=== PATIENT | male | born 1945 | race Caucasian/White ===

== ENCOUNTER 2017-12-22 09:29 | Inpatient (IN) ==
[2017-12-22] MEDS ORDERED: Aspirin 81 MG TAB.CHEW PO ONE (09:41)
--- NOTE | 2017-12-22 09:44 | Emergency Department Note ---
Disposition Clinical Impression: Chest pain Qualifiers: Chest pain type: unspecified Qualified Code(s): R07.9 - Chest pain, unspecified Disposition: Admitted As Inpatient Chest Pain HPI - General Chief Complaint: ED Chest Pain Stated Complaint: chest pain/tightness Time Seen by Provider: 12/22/17 09:40 Source: patient Mode of arrival: ambulatory Limitations: no limitations Vital Signs Reviewed: Yes Nursing Notes Reviewed: Yes - History of Present Illness HPI Narrative: 72-year-old male with a history of previous triple bypass surgery about 10-12 years ago comes in complaining of chest pain that started about an hour prior to arrival. He has had no recent cardiac evaluation. Pt complaint: chest pain Onset (ago): Just [employer] Duration: constant Onset: during rest Pain Location: substernal, left chest Severity: moderate Severity scale (1-10): 6 Quality: tightness, aching Pain Radiation: none Improves with: nothing Worsens with: movement Treatments prior to arrival chest pain: none - Related Data Home Medications Medication Instructions Recorded Confirmed Aspirin [Lo-Dose Aspirin EC] 81 mg PO DAILY 12/22/17 12/22/17 Atorvastatin [Lipitor] 40 mg PO HS 12/22/17 12/22/17 Cefdinir [Omnicef] 300 mg PO BID 12/22/17 12/22/17 Losartan Potassium [Cozaar] 50 mg PO DAILY 12/22/17 12/22/17 Metoprolol [Lopressor] 25 mg PO BID 12/22/17 12/22/17 Omeprazole [PriLOSEC] 20 mg PO DAILY 12/22/17 12/22/17 Allergies Allergy/AdvReac Type Severity Reaction Status Date / Time No Known Allergies Allergy Verified 12/22/17 09:31 All systems ED: reviewed and negative except as stated. Constitutional: Denies: fever, chills, weakness, weight change Eyes: Denies: eye pain, eye discharge, vision change ENT ED: Denies: ear pain, throat pain, dental pain, hearing loss, epistaxis, congestion, dysphagia Cardiovascular: Denies: chest pain, palpitations, dyspnea on exertion, edema, syncope Respiratory: Denies: cough, dyspnea, wheezes, hemoptysis, stridor Gastrointestinal: Denies: abdominal pain, nausea, vomiting, diarrhea, constipation, hematemesis, melena, hematochezia Genitourinary: Denies: urgency, dysuria, frequency, hematuria Musculoskeletal: Denies: back pain, neck pain, arthralgia, myalgia Integumentary: Denies: rash, abrasion, lesions Neurological: Denies: headache, weakness, numbness, paresthesias, confusion, abnormal gait, vertigo Psychiatric: Denies: anxiety, depression, suicidal thoughts, homicidal thoughts , auditory hallucinations, visual hallucinations Endocrine: Denies: fatigue Hematological/Lymphatic: Denies: easy bleeding, easy bruising Allergic/Immunologic: Denies: facial swelling, urticaria Chest Pain PMH - Past Medical History Medical history: Reports: coronary artery disease, hyperlipidemia, hypertension - Social History Smoking Status: Never smoker Alcohol use: Reports: none Drug use: Reports: none Physical Exam - General Limitations: no limitations General appearance: alert, in no apparent distress - Head Head exam: atraumatic, normocephalic, normal inspection - Eye Eye exam: Present: normal appearance, PERRL, EOMI - ENT ENT exam: normal exam, normal oropharynx, mucous membranes moist - Neck Neck exam: Present: normal inspection, full ROM, trachea midline - Chest Chest inspection: Present: normal inspection, symmetric chest wall rise - Respiratory Respiratory exam: Present: normal lung sounds bilaterally - Cardiovascular Cardiovascular exam: Present: regular rate, normal rhythm, normal heart sounds - Abdominal Exam Abdominal exam: Present: soft, Non-Tender. Absent: tenderness, distention, guarding, rebound, rigidity - Extremities Exam Extremities exam: Present: normal inspection, full ROM. Absent: tenderness, pedal edema - Expanded Lower Extremity Exam Neurovascular/Tendon exam: Absent: motor deficit, sensory deficit, tendon deficit Gait: observed and normal - Back Exam Back exam: Present: normal inspection, full ROM. Absent: tenderness - Neurological Exam Neurological exam: Present: alert, oriented X3 - Psychiatric Psychiatric exam: Present: normal affect, normal mood - Skin Skin exam: Present: warm, dry, intact, normal color Course - Reevaluation(s) Reevaluation #1: 72-year-old male who has a history of bypass surgery about 12 years ago comes in complaining of chest pain. He has ST segment depression on his EKG, his last EKG I have hears from an acute VT back in 2006. Sedation obtained with cardiology we'll start heparin and admit patient. Time: 10:30 - Consultations Consultation #1: Discussed with Dr. Rudolph, we will heparinize and admitted to hospitalist with consult to cardiology Time: 10:17 Consultation #2: Discussed with , admit Time: 10:30 Consultation #3: Discussed with , do labor and delivery registered nurse Time: 10:54 Vital Signs Temperature 97.7 F 12/22/17 09:31 Pulse Rate 69 12/22/17 09:31 Respiratory Rate 18 12/22/17 09:31 Blood Pressure 158/92 12/22/17 09:31 O2 Sat by Pulse Oximetry 97 12/22/17 09:31 Temperature 99.1 F 12/22/17 19:45 Pulse Rate 70 12/22/17 19:45 Respiratory Rate 19 12/22/17 19:45 Blood Pressure 124/81 12/22/17 19:45 O2 Sat by Pulse Oximetry 93 12/22/17 19:45 Oxygen Delivery Oxygen Delivery Room Air Chest Pain - Lab Data Lab results reviewed: Yes I reviewed the patient's lab results. Result diagrams: 12/22/17 09:50 12/22/17 09:50 Lab Results 12/22/17 12/22/17 12/22/17 Range/Units 09:50 09:50 09:50 WBC 12.5 H (4.3-11.1) K/mcL RBC 5.90 H (4.19-5.50) M/mcL Hgb 17.0 H (12.9-16.9) g/dL Hct 53.1 H (37.5-50.1) % MCV 90.0 (83.0-100.0) fL MCH 28.8 (28.0-33.3) pg MCHC 32.0 (31.6-35.5) g/dL RDW 13.2 (11.5-14.5) % Plt Count 357 (140-400) K/mcL MPV 9.0 L (9.4-12.4) fL Immature Gran % 1.8 (0-4) % Seg Neutrophils % 78.2 % Lymphocytes % 10.5 % Monocytes % 7.2 % Eosinophils % 1.7 % Basophils % 0.6 % Neutrophils # 9.8 H (1.6-8.9) K/mcL Lymphocytes # 1.3 (0.6-4.6) K/mcL Monocytes # 0.9 (0.0-1.3) K/mcL Eosinophils # 0.2 (0.0-0.6) K/mcL Basophils # 0.1 (0.0-0.2) K/mcL PT 11.5 (9.4-12.1) Seconds INR 1.1 APTT 26.1 (26.0-36.0) Seconds Sodium 137 (136-145) mEq/L Potassium 4.4 (3.5-5.1) mEq/L Chloride 102 (98-107) mEq/L Carbon Dioxide 28 (23-29) mEq/L BUN 24 H (8-23) mg/dL Creatinine 1.25 (0.70-1.30) mg/dL Est GFR ( Amer) > 60 (> 60) Est GFR (Non-Af Amer) 57 L (> 60) BUN/Creatinine Ratio 19 (6-26) Glucose 118 H (70-105) mg/dL Calculated Osmolality 289 (280-300) Calcium 9.4 (8.6-10.3) mg/dL Troponin I (< 0.04) ng/mL 12/22/17 Range/Units 09:50 WBC (4.3-11.1) K/mcL RBC (4.19-5.50) M/mcL Hgb (12.9-16.9) g/dL Hct (37.5-50.1) % MCV (83.0-100.0) fL MCH (28.0-33.3) pg MCHC (31.6-35.5) g/dL RDW (11.5-14.5) % Plt Count (140-400) K/mcL MPV (9.4-12.4) fL Immature Gran % (0-4) % Seg Neutrophils % % Lymphocytes % % Monocytes % % Eosinophils % % Basophils % % Neutrophils # (1.6-8.9) K/mcL Lymphocytes # (0.6-4.6) K/mcL Monocytes # (0.0-1.3) K/mcL Eosinophils # (0.0-0.6) K/mcL Basophils # (0.0-0.2) K/mcL PT (9.4-12.1) Seconds INR APTT (26.0-36.0) Seconds Sodium (136-145) mEq/L Potassium (3.5-5.1) mEq/L Chloride (98-107) mEq/L Carbon Dioxide (23-29) mEq/L BUN (8-23) mg/dL Creatinine (0.70-1.30) mg/dL Est GFR ( Amer) (> 60) Est GFR (Non-Af Amer) (> 60) BUN/Creatinine Ratio (6-26) Glucose (70-105) mg/dL Calculated Osmolality (280-300) Calcium (8.6-10.3) mg/dL Troponin I 0.03 (< 0.04) ng/mL - Radiology Data Radiology results reviewed: Yes I reviewed the patient's radiology results. Chest X-Ray 12/22/17 09:41 IMPRESSION: Stable exam. No acute cardiopulmonary findings. D/ / Kalli Seymour MD / Kalli Seymour MD Interpreting Provider: Kalli Seymour MD Chest x-ray reviewed no acute abnormality - EKG Data EKG attestation: Yes I reviewed and interpreted this EKG. EKG shows normal: sinus rhythm Rate: normal Rhythm: NSR ST segment depression in: v1, v2, v3 Interpretation: nonspecific ST-T wave changes Heart Score - Score History: Highly Suspicious EKG: Non Specific repolarisation Disturbance Age: Greater than 65 Risk Factors: Equal/Greater than 3 risk factor or history of atherosclerotic disease Troponin: Less than normal limit HEART Score Total: 7
[2017-12-22] MEDS ORDERED: *HR* Heparin 5,000 UNIT/ML VIAL IVP PRN ×2 (09:54)
[2017-12-22] MEDS ORDERED: *HR* Heparin 5,000 UNIT/ML VIAL IVP ONE (09:54)
[2017-12-22 10:00] LABS: Basophils # 0.1 K/mcL (0.0-0.2); Basophils % 0.6 %; Eosinophils # 0.2 K/mcL (0.0-0.6); Eosinophils % 1.7 %; Hematocrit 53.1 % (37.5-50.1); Immature Granulocytes % 1.8 % (0-4); Lymphocytes # 1.3 K/mcL (0.6-4.6); Lymphocytes % 10.5 %; Mean Corpuscular Hemoglobin 28.8 pg (28.0-33.3); Monocytes # 0.9 K/mcL (0.0-1.3); Monocytes % 7.2 %; Neutrophils # 9.8 K/mcL (1.6-8.9); Platelet Count 357 K/mcL (140-400); Red Cell Distribution Width 13.2 % (11.5-14.5); Segmented Neutrophils % 78.2 %
[2017-12-22] MEDS ORDERED: Heparin 25,000 UNIT/500 ML D5W 25,000 UNIT/500 ML BAG IVC SCH (10:00)
[2017-12-22 10:05] LABS: INR 1.1; Prothrombin Time 11.5 Seconds (9.4-12.1)
[2017-12-22 10:07] LABS: Activated Partial Thrombo Time 26.1 Seconds (26.0-36.0)
[2017-12-22 10:17] LABS: BUN/Creatinine Ratio 19 (6-26); Blood Urea Nitrogen 24 mg/dL (8-23); Calcium 9.4 mg/dL (8.6-10.3); Carbon Dioxide 28 mEq/L (23-29); Chloride 102 mEq/L (98-107); Glucose 118 mg/dL (70-105); Osmolality,Calculated 289 (280-300); Potassium 4.4 mEq/L (3.5-5.1); Sodium 137 mEq/L (136-145); eGFR For African Americans > 60 (> 60); eGFR For Non-African Americans 57 (> 60)
[2017-12-22] MEDS ORDERED: Nitroglycerin 1,000 MCG/10 ML VIAL IV ONE (10:59)
[2017-12-22] MEDS ORDERED: *HR* Heparin 10,000 UNIT/10 ML VIAL ONE (10:59)
[2017-12-22] MEDS ORDERED: Heparin 1,000 UNITS/500 mL 500 ML ONE (10:59)
[2017-12-22] MEDS ORDERED: 0.9 % Sodium Chloride 1,000 ML ONE ×2 (10:59→11:58)
--- NOTE | 2017-12-22 10:59 | Internal Med History&Physical ---
Date of Encounter: 12/22/17 Time of Encounter: 10:53 Assessment and Plan (1) Unstable angina Current visit: Yes Status: Acute Presentation consistent with unstable angina EKG is abnormal showing significant anterior wall ischemia (2) Hx of CABG Current visit: Yes Status: Chronic CABG done three-vessel about 11 years ago (3) HTN (hypertension) Current visit: Yes Status: Chronic Her chronic and now well-controlled patient will be started on nitroglycerin drip Qualifiers: Hypertension type: essential hypertension Qualified Code(s): I10 - Essential (primary) hypertension (4) Hyperlipidemia Current visit: Yes Status: Chronic Chronic recheck lipid profile in a.m. Qualifiers: Hyperlipidemia type: pure hypercholesterolemia Qualified Code(s): E78.00 - Pure hypercholesterolemia, unspecified; E78.0 - Pure hypercholesterolemia (5) Obesity Current visit: Yes Status: Chronic Chronic Qualifiers: Obesity type: due to excess calories Obesity classification: unspecified obesity classification Serious obesity comorbidity presence: unspecified whether serious comorbidity present Qualified Code(s): E66.09 - Other obesity due to excess calories Internal Medicine - H&P: HPI Chief complaint: chest pain Admitted From: Emergency Dept Plans for Post Hospital Care: Home History of present illness: Mr. Sebastian is a 72 year old male Patient with history of a CABG done three-vessel about 11 years ago, high cholesterol, hypertension, obesity, patient last cardiac evaluation was about 7 years ago patient presented emergency room with chest pain describes as pressure and tightnessy with shortness of breath diaphoresis radiated to the right arm emergency room EKG showed significant ST depression about 2 mm downsloping from V2 to V4 with poor r wave progression also evidence of prior inferior wall MO age undetermined patient still have persistent chest pain cardiology was notified I walked over to the label coder about talked to Dr. Rudolph and they will proceed to the emergency room probably take him to label coder . also discussed with ER about starting nitodrip Past Med Surg Social Fam HX - Past Medical History Medical history: coronary artery disease, hyperlipidemia, hypertension - Past Surgical History Surgical History: coronary bypass (CABG) - Social History Smoking Status: Never smoker Smokeless Tobacco Status: No Alcohol use: none Drug use: none Internal Medicine - H&P: Meds Aspirin [Lo-Dose Aspirin EC] 81 mg PO DAILY 12/22/17 [History] Atorvastatin [Lipitor] 40 mg PO HS 12/22/17 [History] Cefdinir [Omnicef] 300 mg PO BID 12/22/17 [History] Losartan Potassium [Cozaar] 50 mg PO DAILY 12/22/17 [History] Metoprolol [Lopressor] 25 mg PO BID 12/22/17 [History] Omeprazole [PriLOSEC] 20 mg PO DAILY 12/22/17 [History] 3 Allergy/AdvReac Type Severity Reaction Status Date / Time No Known Allergies Allergy Verified 12/22/17 09:31 All Systems PM: A 10-system review of systems was performed and is negative for pertinent findings except as documented above in the HPI. - Constitutional Constitutional: fatigue - EENT Eyes: no change in vision, no discharge, no pain, no photophobia Nose, mouth and throat: no dysphagia, no nasal discharge, no neck pain, no sore throat - Cardiovascular Cardiovascular ROS IM: chest pain, diaphoresis, dyspnea - Respiratory Respiratory: no cough, no dyspnea, no wheezing, no excessive phlegm production - Gastrointestinal Gastrointestinal: no abdominal pain, no diarrhea, no hematemesis, no hematochezia, no melena, no nausea, no vomiting - Musculoskeletal Musculoskeletal ROS IM: no numbness, no tingling - Integumentary Integumentary IM: no rash, no unusual bruising - Constitutional Vitals: Temp Pulse Resp BP Pulse Ox 97.7 F 67 20 141/97 94 12/22/17 09:31 12/22/17 10:16 12/22/17 10:16 12/22/17 10:16 12/22/17 10:16 - Head Head exam: Present: atraumatic, normocephalic - Eye Eye exam: Present: PERRL, conjuntiva pink, sclera anicteric Pupils: Present: PERRL - Neck Neck exam general surgery: Present: supple, trachea midline. Absent: lymphadenopathy - Respiratory Respiratory exam: Present: CTAB. Absent: accessory muscle use, rales, rhonchi, wheezes - Cardiovascular Cardiovascular exam: Present: RRR, +S1, +S2. Absent: diastolic murmur, gallop, rubs, systolic murmur - GI/Abdominal GI/Abdominal exam: Present: normal bowel sounds, soft, no peritoneal signs. Absent: distended, tenderness - Extremities Exam Extremities exam: Present: warm, radial pulses palpable and symmetrical. Absent : calf tenderness, cyanotic, pedal edema - Neurological Exam Neurological exam: Present: CN II-XII intact, oriented X3, no focal deficits. Absent: pronater drift, facial droop, speech deficit - Skin Skin exam: Present: dry, intact Internal Med - H&P Results - Labs CBC & Chem 7: 12/22/17 09:50 12/22/17 09:50 Labs: Short CBC 12/22/17 Range/Units 09:50 WBC 12.5 H (4.3-11.1) K/mcL Hgb 17.0 H (12.9-16.9) g/dL Hct 53.1 H (37.5-50.1) % Plt Count 357 (140-400) K/mcL Neutrophils # 9.8 H (1.6-8.9) K/mcL BMP 12/22/17 09:50 Sodium 137 Potassium 4.4 Chloride 102 Carbon Dioxide 28 BUN 24 H Creatinine 1.25 Glucose 118 H Calcium 9.4 Cardiac Enzymes 12/22/17 Range/Units 09:50 Troponin I 0.03 (< 0.04) ng/mL - Impressions ITS Impressions Chest X-Ray 12/22/17 09:41 IMPRESSION: Stable exam. No acute cardiopulmonary findings. D/ / Kalli Seymour MD / Kalli Seymour MD Interpreting Provider: Kalli Seymour MD
[2017-12-22] MEDS ORDERED: Nitroglycerin 25 MG/250 ML INFUS..BTL IVC SCH (11:00)
[2017-12-22] MEDS ORDERED: Naloxone 0.4 MG/ML INJ IVP PRN (11:03)
[2017-12-22] MEDS ORDERED: Ondansetron 4 MG/2 ML VIAL IVP PRN (11:03)
[2017-12-22] MEDS ORDERED: Mag Hydrox/Al Hydrox/Simeth 30 ML UDC PO PRN (11:03)
--- NOTE | 2017-12-22 11:16 | Cardiology Consult Note ---
Date of Encounter: 12/22/17 Time of Encounter: 11:15 Assessment and Plan (1) Unstable angina Current Visit: Yes Status: Acute C/o severe chest pain starting this morning while at work. EKG concerning for ischemic changes. First troponin negative. [facility] recommended for unstable angina. R/B/A of [facility] reviewed with patient and and he agrees to proceed. Contine heparin gtt. NTG gtt is being started, Continue asa, statin, and bb. (2) Hx of CABG Current Visit: Yes Status: Chronic H/o 2V CABG in 2006 ( PITT-LAD, SVG -OM of the RCA). LHC before bypass showed severe two vessel CAD. There was a 100% stenosis in the pLAD, 85% stenosis in the pRCA, and 15% stenosis in the LCx artery. EF 40% at that time. Continue asa, statin, bb. (3) HTN (hypertension) Current Visit: Yes Status: Chronic Will adjust medications as needed. NTG gtt is being started. Moderatley elevated. Qualifiers: Hypertension type: essential hypertension Qualified Code(s): I10 - Essential (primary) hypertension (4) Hyperlipidemia Current Visit: Yes Status: Chronic Qualifiers: Hyperlipidemia type: pure hypercholesterolemia Qualified Code(s): E78.00 - Pure hypercholesterolemia, unspecified; E78.0 - Pure hypercholesterolemia Discussion w patient/family: The assessment and plan as outlined above was discussed with the patient and/or family members who expressed understanding and agreement. All questions were answered. Thank you for involving us in the care of your patient. Please call with any questions. History of Present Illness Consult date: 12/22/17 Requesting physician: Vitor Richardson Consult reason: Chest pain Chief complaint: Chest pain History of present illness: Mr. Sebastian is a 72 year old male with a past medical history of CAD s/p 2V CABG 11 years ago, HTN, and HLD who presents with the c/o chest pain radiating across his chest. His pain started this morning while he was sitting at work. He drove him self to the ER and sat in the parking lot for 20 min. He started to feel better so he went home. His pain returned shortly after returning home so he drove back. He was given 4 baby aspirins and started on a heparin gtt. He continued to have significant chest pressure. EKG shows SR and new ST depression in leads V2-V4. Initial troponin is negative. Past Med Surg Social Fam HX - Past Medical History Medical history: coronary artery disease, hyperlipidemia, hypertension - Past Surgical History Surgical History: coronary bypass (CABG) - Social History Smoking Status: Never smoker Smokeless Tobacco Status: No Alcohol use: none Drug use: none Medications and Allergies Aspirin [Lo-Dose Aspirin EC] 81 mg PO DAILY 12/22/17 [History] Atorvastatin [Lipitor] 40 mg PO HS 12/22/17 [History] Cefdinir [Omnicef] 300 mg PO BID 12/22/17 [History] Losartan Potassium [Cozaar] 50 mg PO DAILY 12/22/17 [History] Metoprolol [Lopressor] 25 mg PO BID 12/22/17 [History] Omeprazole [PriLOSEC] 20 mg PO DAILY 12/22/17 [History] 3 Allergy/AdvReac Type Severity Reaction Status Date / Time No Known Allergies Allergy Verified 12/22/17 09:31 All Systems Review: A 10-system review of systems was performed and is negative for pertinent findings except as documented above in the HPI. Physical Examination Vital Signs Temp Pulse Resp BP Pulse Ox 12/22/17 10:16 67 20 141/97 94 12/22/17 09:52 68 16 144/101 97 12/22/17 09:31 97.7 F 69 18 158/92 97 Intake and Output 12/21/17 12/22/17 12/22/17 23:59 07:59 15:59 Other: Weight 99.79 kg Patient Weight 12/22/17 23:59 Weight 99.79 kg General: Conversant, No Apparent Distress HEENT: Atraumatic, Normocephaly, Mucus Membranes Moist Neck: No JVD, Normal carotid pulses Cardiac: Reg Rate and Rhythm, Normal S1 and S2, No Murmur Lungs: Normal Breath Sounds, No Wheeze, Rales, Rhonchi Neuro: Alert and responsive, No focal deficits noted Abdomen: Soft, Non-Tender Skin: No rashes noted on visualized skin Musculoskeletal: No Chest Wall Tenderness Extremities: No Clubbing, No Cyanosis, No Edema, Normal Pulses Results 12/22/17 09:50 12/22/17 09:50 - EKG Interpretation EKG results cardiology: personally reviewed Consult Discharge Plan - Plan Referrals: Nirav Solomon DO [Primary Care Provider] -
[2017-12-22] MEDS ORDERED: *HR* Midazolam HCl 2 MG/2 ML VIAL ONE ×2 (11:53→12:40)
[2017-12-22] MEDS ORDERED: *HR* FentaNYL (PF) 100 MCG/2 ML VIAL ONE (11:54)
[2017-12-22] MEDS ORDERED: ISOVUE-370 200 ML INFUS..BTL IV ONE ×2 (11:58→12:59)
--- NOTE | 2017-12-22 12:06 | Pre-Sedation Evaluation ---
Pre-sedation evaluation - Pre-sedation checklist Date of procedure: 12/22/17 Procedure: [facility] Recent Vitals: Last Vital Signs Temp 97.7 F 12/22/17 09:31 Pulse 65 12/22/17 11:41 Resp 16 12/22/17 11:41 BP 140/95 12/22/17 11:41 Pulse Ox 100 12/22/17 11:41 H&P (including ROS) documented in medical record: Yes Previous reaction to sedatives/anesthetics: No Dietary Status: NPO after Midnight Airway Assessment: Patient can open mouth completely, TMJ function normal, Micrognathia (under-bite, receding chin) absent, Neck with adequate range of motion Dentition: No loose teeth or bridges Possible difficult airway: No ASA Classification *see protocol: CLASS II-Mild systemic disease Plan of Care: Pt appropriate candidate for procedure/moderate/conscious sedation , Risks/benefits of procedure/sedation discussed w/ patient/family
[2017-12-22] MEDS ORDERED: *HR* Bivalirudin 250 MG VIAL IVC ONE (12:43)
[2017-12-22] MEDS ORDERED: *HR* Ticagrelor 90 MG TABLET ONE (13:08)
[2017-12-22] MEDS ORDERED: Nitroglycerin 0.4 MG TAB.SUBL SL PRN (13:16)
[2017-12-22] MEDS ORDERED: Acetaminophen 325 MG TABLET PO PRN (13:16)
--- NOTE | 2017-12-22 14:31 | Invasive Diagnostic Lab Proc ---
Name: Teresa Sebastian Date of Study: 12/22/2017 Date: 1945 Ht: 66.1in Medical Record#: [id number] Age: 72 Wt: 220.46lb Gender: Male BSA: 2.09 Order #: [id number] BMI: 35.43 Physicians Procedure Physician: Yumiko Blevins MD, [facility] Referring MD: Referring MD: Staff Name Position Time In VaishalirudyAnabella casas RN Monitor 12:13 PM Shania Martínez RT (R) Scrub 12:13 PM Chirag Wood RN C4 Planner 12:13 PM Indications Indication Unstable Angina Procedures Performed Procedure L HRT ART/GRFT ANGIO PRQ CARD MALCOM STENT W/ANGIO 1 VSL Pre-Procedure Checklist Informed consent is complete signed and on chart. H&P is on chart. ID band is on and ID verified with patient. Patient NPO for procedure The procedure was described for the patient and questions were answered. Blood Pressure: 125/90 ECG is on chart. Rhythm: NSR Plan of Care Patient will tolerate the procedure without complications. Adequate level of comfort will be maintained. Hemodynamics will remain stable Patient will recover from procedure without complications. Respiratory function will be maintained. Cardiac rhythm will remain stable. Patient temperature will be maintained. Patient and/or family have verbalized understanding of the procedure. Patient Education Chief Complaint/Reason for Test: Cardiac Cath Developmental Category: Geriatric (65+ years) Developmentally Appropriate for Age: Yes Learning Barriers: None Education Needs: Procedure Education Method: Verbal Information Taught: Cardiac Cath Educational Evaluation: Able to repeat information Intravenous Access Time IV Size Location DC'd Fluid/Drip Rate Units RN 18g 1 11/16" Patent On Arrival Lt Antecubital 0.9NaCl ml/hr Allergies No Known Allergies NKA Vital Signs Time BP (mmHg) HR (bpm) O2 Sat. RR (bpm) LOC 12:19 PM / % 5 = Fully awake and oriented or at pre-proc level 12:19 PM / % 4 = Oriented but drowsy 12:34 PM / % 4 = Oriented but drowsy 12:50 PM / % 4 = Oriented but drowsy 12:58 PM 120 / 73 61 94 % 01:03 PM 110 / 57 63 96 % 16 01:08 PM 112 / 69 60 94 % 12:13 PM 125 / 90 86 93 % 29 12:18 PM 127 / 86 71 95 % 12:23 PM 131 / 82 64 94 % 29 12:28 PM 131 / 85 63 94 % 12:33 PM 129 / 78 67 95 % 26 12:38 PM 120 / 78 71 94 % 24 12:43 PM 126 / 83 63 92 % 12:48 PM 139 / 81 66 93 % 23 12:53 PM 119 / 64 69 93 % 18 01:31 PM 107 / 66 62 96 % 18 5 = Fully awake and oriented or at pre-proc level 01:55 PM 95 / 64 58 96 % 18 5 = Fully awake and oriented or at pre-proc level 02:05 PM 113 / 67 61 96 % 18 5 = Fully awake and oriented or at pre-proc level 02:22 PM 105 / 65 65 95 % 18 5 = Fully awake and oriented or at pre-proc level Procedural Medications Time Medication Dose Units Method Given By 12:14 PM Oxygen 2 L/min nasal cannula Chirag Wood RN 12:14 PM Versed 2 mg Intravenous Chirag Wood RN 12:14 PM Fentanyl 50 mcg Intravenous Chirag Wood RN 12:25 PM Lidocaine 2% 19 ml Subcutaneous Yumiko Blevins MD, FACC 12:40 PM Angiomax 0.75mg/kg bolus: 15 ml Intravenous Chirag Wood RN 12:40 PM Angiomax 1.75mg/kg/hr: 35 ml/hr Intravenous Chirag Wood RN 12:41 PM Versed 1 mg Intravenous Chirag Wood RN 12:41 PM Fentanyl 25 mcg Intravenous Chirag Wood RN 12:51 PM Nitroglycerin 200 mcg Intracoronary Yumiko Blevins MD, FACC 12:51 PM Nitroglycerin 200 mcg Intracoronary Yumiko Blevins MD, FACC 01:02 PM Nitroglycerin 200 mcg Intracoronary Yumiko Blevins MD, FACC 01:03 PM Nitroglycerin 200 mcg Intracoronary Yumiko Blevins MD, FACC 01:21 PM Brilinta 180 mg Orally Estrellita Cunningham RN ASA Classification: CLASS II- Mild systemic disease (i.e. well-controlled diabetes, hypertension, asthma, cigarette smoking) Kofi Score Preprocedure Postprocedure Activity 2- Moves 4 extremities sustained head lift Activity 2- Moves 4 extremities sustained head lift Circulation 2- SBP +/= 20 points of pre-anesthetic level Circulation 2- SBP +/= 20 points of pre-anesthetic level Consciousness 2- Awake and alert oriented x 3 Consciousness 2- Awake and alert oriented x 3 O2 Saturation 2- Able to maintain O2 satruation of 92% on room air O2 Saturation 2- Able to maintain O2 satruation of 92% on room air Respiratory 2- Able to deep breathe and cough well Respiratory 2- Able to deep breathe and cough well Total Score 10 Total Score 10 Contrast Agent: Isovue Diagnostic Contrast: 217 ml Total Contrast: 217 ml Fluoro Dose: 988 mGy Procedure Log Time Note Enter By 11:52 AM CathStat 12:02 PM Pt arrived to [employer] 2 at 12:02 [email or web address] 12:03 PM Physican paged/called 12:03. [email or web address] 12:03 PM Physican responded and notified [facility] is [email or web address] PM Meet and greet completed [email or web address] 12:03 PM Sign in performed according to hospital policy. [email or web address] 12:03 PM Procedure start 12:03 [email or web address] 12:[facility] PM Clinical Presentation: Unstable angina [email or web address] 12:03 PM Case Start 12:07 PM Vitals capture started with the following parameters, Patient=Adult, Interval=5 min, Initial Hosvjgpn=982 mmHg, Deflation Rate=5 mmHg, Cuff placed on Right Arm 12:12 PM Vitals capture started with the following parameters, Patient=Adult, Interval=5 min, Initial Ppaptfim=566 mmHg, Deflation Rate=5 mmHg, Cuff placed on Right Arm 12:13 PM Anabella Jiang RN Position: Monitor Time in: 12:13 [facility] 12:13 PM Shania Martínez RT (R) Position: Scrub Time in: 12:13 12:13 PM Chirag Wood RN Position: C4 Planner Time in: 12:13 [facility] 12:13 PM Patient charges- Angio tray pack, Navilyst 3mm J, Pulse Oximetry and ACIST tubing and transducer [facility] 12:13 PM Case Delayed No mmers 12:13 PM HR=86 bpm, XWMV=896/90 mmhg, SpO2=93.0 %, Resp=29 B/min 12:13 PM Hair removed from procedure site in procedure lab using clippers. Bilateral groin prepped with Chloraprep by Shania Martínez RT (R), then patient was draped. Skin intact. [facility] 12:14 PM Time: 12:14 Oxygen on at 2 L/min per nasal cannula [facility] PM Time: 12:14 Versed 2 mg Intravenous Given by Chirag Wood RN 12:14 PM Time: 12:14 Fentanyl 50 mcg Intravenous Given by Chirag Wood RN [facility] 12:18 PM HR=71 bpm, TVPR=380/86 mmhg, SpO2=95.0 % 12:19 PM ASA Class CLASS II- Mild systemic disease (i.e. well-controlled diabetes, hypertension, asthma, cigarette smoking) [facility] 12:19 PM Time: 12:19 Patient comfortable and pain free: Yes [facility] 12:19 PM Time: 12:19LOC: 5 = Fully awake and oriented or at pre-proc level [facility] 12:23 PM HR=64 bpm, UVUG=202/82 mmhg, SpO2=94.0 %, Resp=29 B/min 12:23 PM Pressure channel 1 zeroed. 12:23 PM Recorded ECG: HR=62 Condition=Condition 1 12:24 PM Time out performed according to hospital policy [facility] 12:25 PM Time: 12:25 19 ml Lidocaine 2% to right groin Subcutaneous Given by Yumiko Blevins MD, [facility] 12:27 PM Access obtained by percutaneous puncture. 5Fr 10cm Terumo [place] sheath placed in right Femoral artery. [id number] [facility] 12:27 PM 5Fr FL 4 catheter inserted over the wire [facility] 12:28 PM LCA angiography performed in multiple views. [facility] 12:28 PM Recorded Pressure: Ao, HR=64, Condition=Condition 1 (Aorta) Ao 123/91/107 12:28 PM HR=63 bpm, GQPI=123/85 mmhg, SpO2=94.0 %, Comment=NSR 12:30 PM Catheter removed [facility] 12:30 PM 5Fr FR 4 catheter inserted over the wire [facility] 12:31 PM RCA angiography performed in multiple views. [facility] 12:31 PM Bed Management notified of need for a bed [facility] 12:32 PM SVG to the RPDA angio performed in MANUEL, stumped. dspell 12:32 PM Catheter removed dspell 12:33 PM 5Fr IM catheter inserted over the wire [id number] dspellman 12:33 PM 0.035 260cm Navilyst 3mmJ wire [id number] dspellman 12:33 PM HR=67 bpm, IPII=004/78 mmhg, SpO2=95 %, Resp=26 B/min 12:34 PM Time: 12:19 Patient comfortable and pain free: Yes dspell 12:34 PM Time: 12:19LOC: 4 = Oriented but drowsy dspellman 12:35 PM PCI Status Urgent dspell 12:35 PM PCI Indication: PCI for high risk Non-STEMI or unstable angina dspell 12:36 PM 6Fr XB LAD 3.5 Cordis guide catheter was used to cannulate the PCI vessel successfully. reused? No dspell 12:38 PM PCI lesion in 1st Marginal. dspell 12:38 PM PCI lesion in 1st Marginal. Pre Stenosis: 99 Pre KEVEN Flow: 1: Slow Penetration without Perfusion dspell 12:38 PM HR=71 bpm, IEOF=909/78 mmhg, SpO2=94.0 %, Resp=24 B/min, Comment=NSR 12:39 PM Sheath exchanged for a 6 Fr 11 cm Cordis [place] sheath [id number] dspell 12:39 PM .014 Prowater 182cm guide wire across target lesion- successful. reused? No dspell 12:39 PM Inflation device was opened. [facility] 12:40 PM Time: 12:40 Angiomax 0.75mg/kg bolus: 15 ml Intravenous Given by Chirag Wood RN [place] [facility] 12:41 PM Time: 12:40 Angiomax 1.75mg/kg/hr: 35 ml/hr Intravenous Given by Chirag Wood RN [place] [facility] 12:41 PM Time: 12:41 Versed 1 mg Intravenous Given by [facility] RN [facility] 12:41 PM Time: 12:41 Fentanyl 25 mcg Intravenous Given by Chirag Wood [facility] 12:41 PM wire out to [facility] 12:42 PM Recorded Pressure: Ao, HR=64, Condition=Condition 1 (Aorta) Ao 133/83/102 12:43 PM Wire inserted to the OM dspellman 12:43 PM HR=63 bpm, QLGV=085/83 mmhg, SpO2=92.0 %, Comment=NSR 12:45 PM 1.5 mm x 15 mm Emerge Monorail balloon across target lesion- successful. reused? No dspell 12:46 PM Balloon inflated @ 14 marek for 39 seconds dspellman 12:47 PM Balloon inflated @ 14 marek for 20 seconds dspellman 12:47 PM Balloon inflated @ 8 marek for 20 seconds dspellman 12:47 PM Balloon inflated @ 10 marek for 20 seconds dspellman 12:48 PM HR=66 bpm, DQGM=029/81 mmhg, SpO2=93.0 %, Resp=23 B/min, Comment=NSR 12:48 PM Balloon inflated @ 14 marek for 20 seconds dspellman 12:49 PM Balloon inflated @ 14 marek for 20 seconds dspellman 12:50 PM Balloon inflated @ 20 [place]k for 20 seconds [place] 12:50 PM Time: 12:34 Patient comfortable and pain free: Yes [facility] 12:50 PM Time: 12:34LOC: 4 = Oriented but drowsy [place] 12:50 PM Balloon catheter removed intact. dspell 12:51 PM Time: 12:51 Nitroglycerin 200 mcg Intracoronary Given by Yumiko Blevins MD, [facility] 12:51 PM Time: 12:51 Nitroglycerin 200 mcg Intracoronary Given by Yumiko Blevins MD, [facility] 12:53 PM HR=69 bpm, RTNH=744/64 mmhg, SpO2=93.0 %, Resp=18 B/min, Comment=NSR 12:54 PM Recorded Pressure: Ao, HR=63, Condition=Condition 1 (Aorta) Ao 115/75/91 12:57 PM 2.25mm x 12mm Synergy drug-eluting stent across target lesion- successful Lot #[id number] dspell 12:57 PM Stent deployed @ 11 marek for 30 seconds dspell 12:58 PM HR=61 bpm, JFHW=968/73 mmhg, SpO2=94.0 %, Comment=NSR 01:01 PM Stent delivery system removed intact. [email or web address] 01:02 PM Time: 13:02 Nitroglycerin 200 mcg Intracoronary Given by Yumiko Blevins MD, [facility] 01:03 PM Guide wire removed intact. dspellman 01:03 PM HR=63 bpm, ZPDJ=751/57 mmhg, SpO2=96.0 %, Resp=16 B/min, Comment=NSR 01:03 PM Time: 13:03 Nitroglycerin 200 mcg Intracoronary Given by Yumiko Blevins MD, [facility] ell:05 PM Guide catheter removed intact. ell:05 PM Pressure channel 1 zeroed. 01:05 PM Recorded Pressure: LV, HR=75, Condition=Condition 1 (Left Ventricle) LV 78/12/9 01:06 PM Pressure channel 1 zeroed. 01:06 PM Recorded Pressure: LV, HR=61, Condition=Condition 1 (Left Ventricle) LV 78/1/3 01:06 PM Recorded Pressure: LV, Ao, HR=60, Condition=Condition 1 (Left Ventricle) LV 79/4/15, (Aorta) Ao 84/56/71 01:06 PM Time: 12:50LOC: 4 = Oriented but drowsy dspell:07 PM 5Fr Pigtail catheter inserted over the wire [facility] :07 PM Catheter selectively placed in left ventricle dspell:07 PM Bolus angiogram of left Ventricle complete: 6 ml/sec for a total of 24 mls dspell:07 PM Bolus angiogram of right Femoral complete: 4 ml/sec for a total of 7 mls dspell:07 PM Catheter removed :08 PM HR=60 bpm, IPWM=569/69 mmhg, SpO2=94.0 % 01:08 PM Procedure completed at 13:08 dspell:08 PM Did you address KEVEN flow and Dominance? Yes ell:09 PM Sign out completed: Radiation Dose 988.5 mGy Fluoro Time: 11.0 Isovue 370 - 200ml contrast 217 ml given by Yumiko Blevins MD, [facility]. Complications: NoneCardiac Rehab Consult needed: NoConfirmed administered medications: Yes :11 PM Coronary Dominance: Left dspell:12 PM Lesion found in Proximal RCA. Pre Stenosis: 95 Pre KEVEN Flow: dspell:12 PM Lesion found in LMCA. Pre Stenosis: 20 Pre KEVEN Flow: dspell:12 PM Lesion found in Proximal LAD. Pre Stenosis: 70 Pre KEVEN Flow: dspellman 01:12 PM Lesion found in Mid LAD. Pre Stenosis: 100 Pre KEVEN Flow: dspellman 01:12 PM Lesion found in Proximal Circumflex. Pre Stenosis: 20 Pre KEVEN Flow: dspellman 01:13 PM Lesion found in Mid Circumflex. Pre Stenosis: 25 Pre KEVEN Flow: dspellman 01:13 PM Lesion found in Distal Circumflex. Pre Stenosis: 25 Pre KEVEN Flow: dspellman 01:13 PM Lesion found in Ramus. Pre Stenosis: 25 Pre KEVEN Flow: dspellman 01:13 PM Vitals capture stopped. 01:16 PM Ramus with 25% stenosis. If graft is supplying this area, 0 % stenosis dspellman 01:16 PM Circumflex, Obtuse Marginal, Left Posterior Descending, and Left Posterolateral Coronary Arteries with 99 % stenosis. If graft is supplying this area, 0 % stenosis dspellman 01:17 PM Mid/Distal Left Anterior Descending Coronary Artery and diagonal branches with 100% stenosis. If graft is supplying this area, 0 % stenosis dspellman 01:17 PM Proximal Left Anterior Descending Coronary Artery with 70% stenosis. If graft is supplying this territory, 0 % stenosis. dspellman 01:18 PM Left Main Coronary Artery with 20% stenosis dspellman 01:18 PM Right Coronary, Right Posterior Descending Arteries with Right Posterolateral and Acute Marginal branches with 95 % stenosis. If graft is supplying this area, 100 % stenosis dsp:21 PM Time: 13:21 Brilinta 180 mg Orally Given by Estrellita Cunningham RN : PM Sheath left in place to be pulled on floor/holding area : PM Estimated Blood Loss: less than 20cc dspell: PM Post ECG NSR dspell: PM Post Blood Pressure 112/69 dspell: PM Information taught Cardiac Cath and PCI dsp PM Education needs Procedure, Plan of Care, and Responsibilities of Patient in Care PM Learning barriers :None PM Education Methods Verbal dsp PM Education evaluation Able to repeat information PM Site status No bleeding/hematoma - Rt Groin as reported by Shania Martínez RT (R) at 13:23 PM Opsite applied dspellman 01:23 PM Report given to Ashleigh MCGHEE Pt taken to Holding room Room #3. 13:23 dspell 01:23 PM Plavix, Effient or Brilinta given Yes ell 01:24 PM Delay to floor Bed availability dspell 01:24 PM Patient out of room: 13:24 dspell 01:24 PM Family placed in consult room. dspell 01:24 PM Complications: None dspell 01:24 PM Fluoro Time: 11 dsp 01:31 PM pt checked into HR 4, waiting on room to be cleaned [email or web address] 01:48 PM report called to Leeanna on 2N [email or web address] 01:57 PM Report given to Emiliana MCGHEE Pt taken to 2N Room #9. 13:56 [email or web address] 02:04 PM TAZ Lal at bedside talking with patient about cardiac rehab [email or web address] 02:23 PM Patient out of room: 14:23 [email or web address] Complications Complication None Hemodynamics Pressures Site Systolic/A Wave Diastolic/V Wave Mean AO 123 91 107 AO 133 83 102 AO 115 75 91 LV 78 12 9 LV 78 1 3 LV 79 4 15 AO 84 56 71 Post Procedure Information Blood Pressure: 112/69 mmHg Rhythm: NSR Post procedural instructions were given Site Checks Time Location Status Staff Sheath In? Note 01:23 PM Rt Groin No bleeding/hematoma Shania Martínez RT (R) Yes 01:31 PM Rt Groin No bleeding/ No Hematoma Karina Pacheco RN Yes 01:55 PM Rt Groin No bleeding/ No Hematoma Karina Pacheco RN Yes 02:04 PM Rt Groin No bleeding/ No Hematoma Karina Pacheco RN Yes 02:22 PM Rt Groin No bleeding/ No Hematoma Karina Pacheco RN Yes Pulses Time Site Pre-Procedure Post-Procedure Note Bilateral DP & PT 1+ Bilateral radial 2+ 12/22/2017 2:05:00 PM Bilateral DP & PT 1+ 12/22/2017 2:22:00 PM Bilateral DP & PT 1+ Updated by Karina Pacheco RN on 12/22/2017 2:23:35 PM electronically signed on 12/22/2017 2:24:12 PM with status of Final
--- NOTE | 2017-12-22 17:34 | Electrocardiograph Report ---
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
[2017-12-22] MEDS: *HR* Ticagrelor 90 MG TABLET PO SCH (20:36)
[2017-12-23] MEDS: *HR* Ticagrelor 90 MG TABLET PO SCH (07:41)
[2017-12-23 08:49] LABS: Alanine Aminotransferase 24 Units/L (7-52); Albumin 3.6 g/dL (3.5-5.7); Albumin/Globulin Ratio 1.3 (1.1-2.2); Alkaline Phosphatase 75 Units/L (34-104); Aspartate Amino Transferase 47 Units/L (13-39); BUN/Creatinine Ratio 18 (6-26); Bilirubin,Total 0.7 mg/dL (0.3-1.0); Blood Urea Nitrogen 19 mg/dL (8-23); Calcium 8.5 mg/dL (8.6-10.3); Carbon Dioxide 24 mEq/L (23-29); Chloride 104 mEq/L (98-107); Chol/HDL Ratio 3.8 (0-4.9); Cholesterol 123 mg/dL (< 200); Globulin 2.8 g/dL (2.4-3.5); Glucose 111 mg/dL (70-105); HDL Cholesterol 32 mg/dL (40-59); LDL Cholesterol,Calculated 76 mg/dL (0-99); Osmolality,Calculated 281 (280-300); Potassium 4.2 mEq/L (3.5-5.1); Sodium 134 mEq/L (136-145); Total Protein 6.4 g/dL (6.4-8.9); Triglycerides 76 mg/dL (< 150); eGFR For African Americans > 60 (> 60); eGFR For Non-African Americans > 60 (> 60)
[2017-12-23] MEDS ORDERED: Aspirin Enteric Coated 81 MG Tablet PO SCH (09:00)
[2017-12-23 10:41] LABS: Basophils % 0.5 %; Eosinophils # 0.1 K/mcL (0.0-0.6); Eosinophils % 1.4 %; Hematocrit 46.5 % (37.5-50.1); Lymphocytes # 0.9 K/mcL (0.6-4.6); Lymphocytes % 12.7 %; Mean Corpuscular Hemoglobin 28.6 pg (28.0-33.3); Mean Corpuscular Volume 89.3 fL (83.0-100.0); Mean Platelet Volume 9.4 fL (9.4-12.4); Monocytes # 0.9 K/mcL (0.0-1.3); Monocytes % 11.5 %; Neutrophils # 5.3 K/mcL (1.6-8.9); Platelet Count 286 K/mcL (140-400); Red Blood Count 5.21 M/mcL (4.19-5.50); Red Cell Distribution Width 13.6 % (11.5-14.5); Segmented Neutrophils % 71.9 %
[2017-12-23 10:48] LABS: Hemoglobin 14.9 g/dL (12.9-16.9)
--- NOTE | 2017-12-23 10:53 | Cardiology Progress Note ---
Date of Encounter: 12/23/17 Time of Encounter: 10:00 Assessment and Plan (1) NSTEMI (non-ST elevated myocardial infarction) Current Visit: Yes Status: Acute Troponin elevation 0.34, 4.08, 7.17, 7.65. LHC showed 1/2 patent bypass grafts. SVG-right marginal occluded. Pitt -LAD is patent. He received PCI to the OM1. Noted troponin continues to increase after cath. His LHC was completed quickly after his arrival due to concerning EKG changes. Further troponin elevation was expected. He denies chest pain and EKG with no acute changes. TTE shows preserved EF. Discussed with primary team, they will check one more troponin prior to d/c. Discussed with carri Rosales to discharge from cardiology standpoint if he is not having symptoms. There was no complication from the procedure. Denies recurrent chest pain. No complications from right femoral access site. Importance of DAPT with asa and brilinta uninterrupted for minimum of one year discussed and she voiced understanding. Continue statin and BB. Activity restrictions reviewed as stated above.Cardiac rehab ordered. Cardiology will sign off. Out-pt f/u will be coordinated by [facility]. (2) Hx of CABG Current Visit: Yes Status: Chronic H/o 2V CABG in 2006 ( PITT-LAD, SVG -OM of the RCA). Continue asa, statin, bb. (3) HTN (hypertension) Current Visit: Yes Status: Chronic B/p acceptable. Qualifiers: Hypertension type: essential hypertension Qualified Code(s): I10 - Essential (primary) hypertension (4) Hyperlipidemia Current Visit: Yes Status: Chronic Qualifiers: Hyperlipidemia type: pure hypercholesterolemia Qualified Code(s): E78.00 - Pure hypercholesterolemia, unspecified; E78.0 - Pure hypercholesterolemia Discussion w patient/family: The assessment and plan as outlined above was discussed with the patient and/or family members who expressed understanding and agreement. All questions were answered. Thank you for involving us in the care of your patient. Please call with any questions. Subjective Principal diagnosis: NSTEMI Interval history: Mr. Chaparro denies recurrent chest pain. Objective General: Conversant, No Apparent Distress HEENT: Atraumatic, Normocephaly, Mucus Membranes Moist Neck: No JVD, Normal carotid pulses Cardiac: Reg Rate and Rhythm, Normal S1 and S2, No Murmur Lungs: Normal Breath Sounds, No Wheeze, Rales, Rhonchi Neuro: Alert and responsive, No focal deficits noted Abdomen: Soft, Non-Tender Skin: No rashes noted on visualized skin Musculoskeletal: No Chest Wall Tenderness Extremities: No Clubbing, No Cyanosis, No Edema, Normal Pulses, Other (Right groin without hematoma, ) Results 12/22/17 09:50 12/23/17 07:04 Lab Results 12/22/17 12/22/17 12/23/17 13:52 19:19 01:00 Sodium Potassium Chloride Carbon Dioxide BUN Creatinine Glucose Calcium Magnesium Total Bilirubin AST ALT Alkaline Phosphatase Troponin I 0.34 H* 4.08 H* 7.47 H* B-Natriuretic Peptide 12/23/17 12/23/17 12/23/17 07:04 07:04 07:04 Sodium 134 L Potassium 4.2 Chloride 104 Carbon Dioxide 24 BUN 19 Creatinine 1.06 Glucose 111 H Calcium 8.5 L Magnesium 2.0 Total Bilirubin 0.7 AST 47 H ALT 24 Alkaline Phosphatase 75 Troponin I 7.65 H* B-Natriuretic Peptide 29 - Imaging and Cardiology Cardiac cath: report reviewed - EKG Interpretation EKG results cardiology: personally reviewed Consult Discharge Plan - Plan Referrals: Nirav Solomon DO [Primary Care Provider] -
[2017-12-23 10:54] VITALS: BP 135/81
--- NOTE | 2017-12-23 14:28 | Discharge Summary ---
<MauricetristanalexsandraLuiz Rasheed - Last Filed: 12/23/17 14:24> Date of Encounter: 12/23/17 Time of Encounter: 14:24 - Discharge Diagnosis (1) Unstable angina Priority: Primary Status: Acute (2) Hx of CABG Priority: Primary Status: Chronic (3) HTN (hypertension) Priority: Primary Status: Chronic Qualifiers: Hypertension type: essential hypertension Qualified Code(s): I10 - Essential (primary) hypertension (4) Hyperlipidemia Priority: Primary Status: Chronic Qualifiers: Hyperlipidemia type: pure hypercholesterolemia Qualified Code(s): E78.00 - Pure hypercholesterolemia, unspecified (5) NSTEMI (non-ST elevated myocardial infarction) Priority: Primary Status: Acute - Discharge Medications Prescriptions: Atorvastatin [Lipitor] 80 mg PO HS 30 Days #60 tablet Ticagrelor [Brilinta] 90 mg PO BID 30 Days #30 tablet Home Medications: Aspirin [Lo-Dose Aspirin EC] 81 mg PO DAILY 12/22/17 [History] Cefdinir [Omnicef] 300 mg PO BID 12/22/17 [History] Losartan Potassium [Cozaar] 50 mg PO DAILY 12/22/17 [History] Metoprolol [Lopressor] 25 mg PO BID 12/22/17 [History] Omeprazole [PriLOSEC] 20 mg PO DAILY 12/22/17 [History] Atorvastatin [Lipitor] 80 mg PO HS 30 Days #60 tablet 12/23/17 [Rx] Ticagrelor [Brilinta] 90 mg PO BID 30 Days #30 tablet 12/23/17 [Rx] Allergies/Adverse Reactions: 3 Allergy/AdvReac Type Severity Reaction Status Date / Time No Known Allergies Allergy Verified 12/22/17 09:31 Procedures/tests Complete & Pending: Procedures Performed prior 72 hours Category Date Time Status ECG 12 lead ECG [ECG] AM 0600 Y 12/23/17 06:00 Ordered ECG 12 lead ECG [ECG] Stat Y 12/22/17 13:16 Completed ECG 12 lead ECG [ECG] Stat Y 12/23/17 01:45 Ordered EV echocardiogram Routine Y 12/22/17 11:07 Completed Date of admission: 12/22/17 11:03 Primary care physician: Nirav Solomon Consults: 12/22/17 13:16 Consult to Cardiac Rehabilitation-Phase1 [CONS] Routine Comment: Reason for Consult: post op PCI Call Completed: Yes 12/22/17 14:16 Consult to Pastoral Services [CONS] Routine Comment: Discharging clinician: Luiz Garcia Anticipated date of discharge: 12/23/17 - Patient Status Disposition: Home, Self-Care Condition: Good Functional capacity at discharge: independent ambulation Overall status at discharge: patient is progressing back to baseline - Discharge Instructions Instructions: Ticagrelor (By mouth), Myocardial Infarction (DC), Chest Pain (DC ), Heart Healthy Diet (DC) Follow Up With: Christian Rudolph MD [Partnered Physician] - (cardiology office will call with appointment) Nirav Solomon DO [Primary Care Provider] - (web request sent office to call with f/u appointment. ) Additional Instructions: RISK FACTORS: STOP SMOKING: If you smoke, STOP. Smoking or tobacco use significantly increases your risk of heart disease because nicotine causes the arteries to narrow or constrict. It also causes fats to stick to the artery. Your chances of having a heart attack are greatly increased if you continue to smoke. For more information, call the education line for smoking cessation 8-942-EUHGHJS EAT A LOW FAT/CHOLESTEROL/SODIUM DIET: This diet may help reduce your chances of having a heart attack. LIFTING: Avoid lifting anything more than 10 pounds for 5-7 days Prior to straining, laughing, sneezing and/or coughing, apply manual pressure directly over insertion site. ACTIVITY: You may walk or climb stairs as tolerated You can resume sexual activity as tolerated In general, you are encouraged to engage in a minimum of 30 minutes or more of moderate intensity physical activity, such as brisk walking, daily or at least 3 -4 times weekly BATHING Do not submerge the site into water (bath tub, hot tub, swimming pool) for 1 week. This can be a source for infection into the blood stream. You may shower after 24 hours SITE CARE: After 24 hours, you may remove the dressing and leave the site open to air. Keep the site clean and dry. Clean gently and pat dry. You can expect bruising and tenderness that gradually resolve within a week or two. Return to work as instructed per your physician Resume driving as instructed per physician Keep all scheduled follow up appointments Resume medications as instructed IMPORTANT: If prescribed a Platelet Aggregation Inhibitor such as, Plavix, Brilinta or Effient: Duration of therapy is minimum one year These medications are often used in combination with Aspirin in prevention of future heart attacks Never discontinue unless consult with your Robotics Technologist STROKE (CVA) Risk factors for a stroke are: Age, cigarette smoking, diabetes, excessive alcohol consumption, family history, high blood pressure, overweight, physical inactivity, prior stroke, heart attack, diagnosis of carotid artery stenosis or other artery disease. Warning signs: Sudden numbness or weakness of the face, arm or leg; especially on one side of the body, sudden confusion, trouble speaking or understanding, sudden trouble seeing in one or both eyes, sudden trouble walking, dizziness, loss of balance or coordination, sudden severe headache with no cause. Call 911 or go to the Emergency Room. CONGESTIVE HEART FAILURE: If you have been diagnosed with Congestive Heart Failure (CHF) and your symptoms return, make an appointment with your physician Weigh yourself daily. Notify your physician if you have a weight gain of two or more pounds in one day or five or more pounds in one week. If you experience any difficulty breathing, please call 911 BLEEDING: Although the risk of bleeding is minimal, it can happen. If you have any bleeding from the site, apply firm pressure above the puncture site for 10-15 minutes. If the bleeding does not stop, continue manual pressure and call 911 Contact your physician if: You develop a fever greater than 101 degrees Fahrenheit Your site becomes reddened or has any drainage You have an increase in pain or burning at the site or if a large knot forms at the site. If you experience chest pain, shortness of breath, dizziness, or extreme tiredness, stop the activity and rest. Please notify your physicians office if you experience any of these symptoms and they are not relieved by rest please call 911!Follow up with cardiology post discharge as scheduled Follow up with PCP Take medications as prescribed. - Diet and Activity Activity: increase activity as tolerated Diet: low fat, low cholesterol, low salt diet Interval History: Mr. Sebastian is a 72 year old male with history of a CABG done three-vessel ~11 years ago, high cholesterol, hypertension, obesity, presented emergency room with chest pain describes as pressure and tightnessy with shortness of breath diaphoresis radiated to the right arm emergency room EKG showed significant ST depression about 2 mm downsloping from V2 to V4 with poor wave progression also evidence of prior inferior wall SC age undetermined patient still have persistent chest pain cardiology was notified. Cardiology evaluated him and brought him to the label folder where he under went PCI to the OM with recurrence of symptoms. He was transferred to the ICU stepdown and monitored over night. His troponin level peaked at 7.65 and trended down to 4.80 at 1333. He was seen and evaluated at bed side. He has not had any chest pain, pressure or other concerning symptoms since his presentation. He was deemed stable for discharge home with follow up with his PCP and Cardiology as scheduled. A script for Brillenta daily and Atorvastatin 80mg PO daily were provided. He takes ASA 81mg daily on his home dose and expresses understanding to the important of taking them every day. Hospital course: Mr. Sebastian is a 72 year old male - Time Spent with Patient Total time spent providing and/or coordinating discharge services: - Constitutional Vitals: Temp Pulse Resp BP Pulse Ox 98.4 F 58 16 135/81 95 12/23/17 10:53 12/23/17 10:53 12/23/17 10:53 12/23/17 10:53 12/23/17 10:53 - Head Head exam: Present: atraumatic, normocephalic - Eye Eye exam: Present: PERRL, conjuntiva pink, sclera anicteric Pupils: Present: PERRL - Neck Neck exam general surgery: Present: supple, trachea midline. Absent: lymphadenopathy - Respiratory Respiratory exam: Present: CTAB. Absent: accessory muscle use, rales, rhonchi, wheezes - Cardiovascular Cardiovascular exam: Present: RRR, +S1, +S2. Absent: diastolic murmur, gallop, rubs, systolic murmur - GI/Abdominal GI/Abdominal exam: Present: normal bowel sounds, soft, no peritoneal signs. Absent: distended, tenderness - Extremities Exam Extremities exam: Present: warm, radial pulses palpable and symmetrical. Absent : calf tenderness, cyanotic, pedal edema - Neurological Exam Neurological exam: Present: CN II-XII intact, oriented X3, no focal deficits. Absent: pronater drift, facial droop, speech deficit - Skin Skin exam: Present: dry, intact <Rene Chaudhari - Last Filed: 12/23/17 17:49> Date of Encounter: 12/23/17 - Discharge Diagnosis (1) NSTEMI (non-ST elevated myocardial infarction) Status: Acute (2) HTN (hypertension) Status: Chronic Qualifiers: Hypertension type: essential hypertension Qualified Code(s): I10 - Essential (primary) hypertension (3) Hx of CABG Status: Chronic (4) Hyperlipidemia Status: Chronic Qualifiers: Hyperlipidemia type: mixed hyperlipidemia Qualified Code(s): E78.2 - Mixed hyperlipidemia (5) Obesity Status: Chronic Qualifiers: Obesity type: due to excess calories Obesity classification: adult class 2 (BMI 35 - 39.9) Serious obesity comorbidity presence: with serious comorbidity Body mass index: BMI 35.0-35.9 Qualified Code(s): E66.01 - Morbid (severe) obesity due to excess calories; Z68.35 - Body mass index (BMI) 35.0-35.9, adult; Z68.35 - Body mass index (BMI) 35.0-35.9, adult Procedures/tests Complete & Pending: Procedures Performed prior 72 hours Category Date Time Status ECG 12 lead ECG [ECG] AM 0600 Y 12/23/17 06:00 Ordered ECG 12 lead ECG [ECG] Stat Y 12/22/17 13:16 Completed ECG 12 lead ECG [ECG] Stat Y 12/23/17 01:45 Ordered EV echocardiogram Routine Y 12/22/17 11:07 Completed Date of admission: 12/22/17 11:03 Primary care physician: Nirav Solomon Consults: 12/22/17 13:16 Consult to Cardiac Rehabilitation-Phase1 [CONS] Routine Comment: Reason for Consult: post op PCI Call Completed: Yes 12/22/17 14:16 Consult to Pastoral Services [CONS] Routine Comment: Hospital course: Mr. Sebastian is a 72 year old male - Time Spent with Patient Total time spent providing and/or coordinating discharge services: 22min - Constitutional Vitals: Temp Pulse Resp BP Pulse Ox 98.4 F 58 16 135/81 95 12/23/17 10:53 12/23/17 10:53 12/23/17 10:53 12/23/17 10:53 12/23/17 10:53 - Attending Attestation I examined this patient and my medical decision-making was reviewed with the Resident Physician on 12/23/17. I agree with the documented findings, disposition and treatment plan as described except to the extent set forth below. Mr Sebastian has been admitted for acute NSTEMI. He is s/p cath and doing well. His vitals are good and he is ready for discharge home. Exam alert. Comfortable Heart reg No wheeze Abd soft I/P 1. NSTEMI D/C today.
--- NOTE | 2017-12-24 10:38 | Electrocardiograph Report ---
[facility] Test Date: 2017-12-22 Pat Name: Teresa Sebastian Department: 104 Room: 2N09 Gender: M Acupressure Therapist: [facility] : 1945 Requested By: Vitor Richardson Order Number: [id number] Reading MD: Kamran Robin MD Measurements Intervals [place] Rate: 68 P: 17 NV: 199 QRS: -21 QRSD: 99 T: -4 QT: 355 QTc: 372 Interpretive Statements SINUS RHYTHM Electronically Signed On 12-24-2017 10:36:50 EST by Kamran Robin MD
--- NOTE | 2017-12-25 07:35 | Electrocardiograph Report ---
[address] [place], [place] [address] Test Date: 2017-12-23 Pat Name: Teresa Sebastian Department: 110 Room: 2N09 Gender: M Clinical Trial Data Manager: : 1945 Requested By: Yumiko Blevins Order Number: [id number] Reading MD: Christian Rudolph MD Measurements Intervals [place] Rate: 71 P: 18 NV: 184 QRS: -12 QRSD: 100 T: -2 QT: 371 QTc: 394 Interpretive Statements SINUS RHYTHM INFERIOR MYOCARDIAL INFARCTION, PROBABLY OLD Poor R wave progression Electronically Signed On 12-25-2017 7:33:44 EST by Christian Rudolph MD
--- NOTE | 2017-12-25 07:38 | Electrocardiograph Report ---
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
== END 2017-12-23 14:50 | disposition home or self-care (01) | DRG 247 ==
LOC: EMEROO 09:29 → 2ANU 09:29 → 2NNU 13:29
PROVIDERS: ADMIT Internal Medicine Cardiovascular Disease; ATTEND Internal Medicine

== ENCOUNTER 2018-02-14 12:43 | Observation (INO) ==
--- NOTE | 2018-02-14 14:09 | Emergency Department Note ---
Disposition Clinical Impression: Chest pain Qualifiers: Chest pain type: unspecified Qualified Code(s): R07.9 - Chest pain, unspecified Dyspnea Qualifiers: Dyspnea type: unspecified Qualified Code(s): R06.00 - Dyspnea, unspecified Disposition: Admitted As Inpatient Condition: Good Forms: ED Satisfaction Letter Time of Disposition: 15:52 General Adult HPI - General Chief complaint: ED Shortness of Breath/Dyspnea Stated complaint: CP Time Seen by Provider: 02/14/18 13:57 Source: patient Mode of arrival: ambulatory Limitations: no limitations Nursing Notes Reviewed: Yes Vital Signs Reviewed: Yes - History of Present Illness HPI Narrative: Patient is a 72-year-old male with past medical history of recent stent placement at the beginning of December by Dr. Yumiko Blevins. He also has a history of triple bypass. He presents today due to chest tightness and shortness of breath that has been occurring over the past 24 hours. He says that that chest tightness and shortness of breath has worsened this morning, worsens with exertion. Denies any radiation anywhere else. He denies any associated nausea, vomiting, fevers, sweating, abdominal pain, diarrhea. He is currently on aspirin 81mg and brilinta. He said that he called his piano teacher 's office this morning and was told to come to the ED for further evaluation. Pain Scale: 8 - Related Data Home Medications Medication Instructions Recorded Confirmed Aspirin [Lo-Dose Aspirin EC] 81 mg PO DAILY 12/22/17 12/22/17 Cefdinir [Omnicef] 300 mg PO BID 12/22/17 12/22/17 Losartan Potassium [Cozaar] 50 mg PO DAILY 12/22/17 12/22/17 Metoprolol [Lopressor] 25 mg PO BID 12/22/17 12/22/17 Omeprazole [PriLOSEC] 20 mg PO DAILY 12/22/17 12/22/17 Previous Rx's Medication Instructions Recorded Atorvastatin [Lipitor] 80 mg PO HS 30 Days #60 tablet 12/23/17 Ticagrelor [Brilinta] 90 mg PO BID 30 Days #30 tablet 12/23/17 Allergies Allergy/AdvReac Type Severity Reaction Status Date / Time No Known Allergies Allergy Verified 12/22/17 09:31 All systems ED: reviewed and negative except as stated. Constitutional: Denies: fever Cardiovascular: Reports: chest pain Respiratory: Reports: dyspnea. Denies: cough, wheezes Gastrointestinal: Denies: abdominal pain, nausea, vomiting, diarrhea Genitourinary: Denies: urgency, dysuria Neurological: Denies: headache, weakness, numbness, paresthesias Past Medical History - Past Medical History Attestation: Yes The following information was validated with the patient. Source: patient Medical history: Reports: coronary artery disease, GERD, hyperlipidemia, hypertension, myocardial infarction Surgical history: Reports: coronary bypass (CABG) Psychiatric history: Reports: no psych history - Social History Smoking Status: Never smoker Smokeless Tobacco Status: No Alcohol use: Reports: none Drug use: Reports: none Physical Exam - General Limitations: no limitations General appearance: alert, in no apparent distress - Head Head exam: atraumatic, normocephalic, normal inspection - Eye Eye exam: Present: normal appearance, PERRL, EOMI - ENT ENT exam: normal exam, normal oropharynx, mucous membranes moist - Neck Neck exam: Present: normal inspection, full ROM, trachea midline - Chest Chest inspection: Present: normal inspection, symmetric chest wall rise - Respiratory Respiratory exam: Present: normal lung sounds bilaterally - Cardiovascular Cardiovascular exam: Present: regular rate, normal rhythm, normal heart sounds - Abdominal Exam Abdominal exam: Present: soft, Non-Tender. Absent: tenderness, distention, guarding, rebound, rigidity - Extremities Exam Extremities exam: Present: normal inspection, full ROM. Absent: tenderness, pedal edema - Neurological Exam Neurological exam: Present: alert, oriented X3 - Psychiatric Psychiatric exam: Present: normal affect, normal mood - Skin Skin exam: Present: warm, dry, intact, normal color Course Course Narrative: Patient was mildly hypertensive on presentation. Otherwise, the rest of the vitals within normal limits. Physical exam was benign, heart regular rate and rhythm, lungs clear to auscultation, abdomen soft and nontender. EKG was obtained and showed no acute ST changes, normal sinus rhythm. Basic blood work was obtained here troponin negative. No major electrolyte abnormality. Patient has refused any nitroglycerin or pain medication at this time. He was given aspirin 325 mg. I talked with Dr. Delores verduzco for cardiology. I discussed the patient presentation, vitals, history, current workup results. He requested that we start the patient on heparin and they will act as a consult for the patient. Patient has no contraindications to happen at this time.*Heparin. Patient was reevaluated and is having some tightness but refuses any pain medication at this time. Will admit to hospitalist for further care. Vital Signs Temperature 98.3 F 02/14/18 12:50 Pulse Rate 96 02/14/18 12:50 Respiratory Rate 18 02/14/18 12:50 Blood Pressure 154/81 02/14/18 12:50 O2 Sat by Pulse Oximetry 100 02/14/18 12:50 Temperature 98.3 F 02/14/18 12:50 Pulse Rate 96 02/14/18 12:50 Respiratory Rate 18 02/14/18 12:50 Blood Pressure 154/81 02/14/18 12:50 O2 Sat by Pulse Oximetry 100 02/14/18 12:50 Oxygen Delivery Oxygen Delivery Room Air Medical Decision Making - MDM Narrative Medical decision making narrative: Patient was mildly hypertensive on presentation. Otherwise, the rest of the vitals within normal limits. Physical exam was benign, heart regular rate and rhythm, lungs clear to auscultation, abdomen soft and nontender. EKG was obtained and showed no acute ST changes, normal sinus rhythm. Basic blood work was obtained here troponin negative. No major electrolyte abnormality. Patient has refused any nitroglycerin or pain medication at this time. He was given aspirin 325 mg. I talked with Dr. Delores verduzco for cardiology. I discussed the patient presentation, vitals, history, current workup results. He requested that we start the patient on heparin and they will act as a consult for the patient. Patient has no contraindications to happen at this time.*Heparin. Patient was reevaluated and is having some tightness but refuses any pain medication at this time. Will admit to hospitalist for further care. - Medical Records Medical records reviewed: Yes I reviewed the patient's medical records. - Lab Data Lab results reviewed: Yes I reviewed the patient's lab results. Result diagrams: 02/14/18 14:09 02/14/18 14: Lab Results 02/14/18 02/14/18 02/14/18 Range/Units 14: 14: 14:09 WBC 6.2 (4.3-11.1) K/mcL RBC 4.91 (4.19-5.50) M/mcL Hgb 14.5 (12.9-16.9) g/dL Hct 44.9 (37.5-50.1) % MCV 91.4 (83.0-100.0) fL MCH 29.5 (28.0-33.3) pg MCHC 32.3 (31.6-35.5) g/dL RDW 14.6 H (11.5-14.5) % Plt Count 224 (140-400) K/mcL MPV 9.6 (9.4-12.4) fL Immature Gran % 0.6 (0-4) % Seg Neutrophils % 73.7 % Lymphocytes % 13.2 % Monocytes % 9.3 % Eosinophils % 2.9 % Basophils % 0.3 % Neutrophils # 4.6 (1.6-8.9) K/mcL Lymphocytes # 0.8 (0.6-4.6) K/mcL Monocytes # 0.6 (0.0-1.3) K/mcL Eosinophils # 0.2 (0.0-0.6) K/mcL Basophils # 0.0 (0.0-0.2) K/mcL Sodium 137 (136-145) mEq/L Potassium 4.7 (3.5-5.1) mEq/L Chloride 106 (98-107) mEq/L Carbon Dioxide 25 (23-29) mEq/L BUN 21 (8-23) mg/dL Creatinine 1.36 H (0.70-1.30) mg/dL Est GFR ( Amer) > 60 (> 60) Est GFR (Non-Af Amer) 52 L (> 60) BUN/Creatinine Ratio 15 (6-26) Glucose 90 (70-105) mg/dL Calculated Osmolality 287 (280-300) Lactic Acid 0.8 (0.5-2.2) mmol/L Calcium 9.1 (8.6-10.3) mg/dL Troponin I < 0.03 (< 0.04) ng/mL B-Natriuretic Peptide (Less than 100) pg/mL 02/14/18 Range/Units 14:09 WBC (4.3-11.1) K/mcL RBC (4.19-5.50) M/mcL Hgb (12.9-16.9) g/dL Hct (37.5-50.1) % MCV (83.0-100.0) fL MCH (28.0-33.3) pg MCHC (31.6-35.5) g/dL RDW (11.5-14.5) % Plt Count (140-400) K/mcL MPV (9.4-12.4) fL Immature Gran % (0-4) % Seg Neutrophils % % Lymphocytes % % Monocytes % % Eosinophils % % Basophils % % Neutrophils # (1.6-8.9) K/mcL Lymphocytes # (0.6-4.6) K/mcL Monocytes # (0.0-1.3) K/mcL Eosinophils # (0.0-0.6) K/mcL Basophils # (0.0-0.2) K/mcL Sodium (136-145) mEq/L Potassium (3.5-5.1) mEq/L Chloride (98-107) mEq/L Carbon Dioxide (23-29) mEq/L BUN (8-23) mg/dL Creatinine (0.70-1.30) mg/dL Est GFR ( Amer) (> 60) Est GFR (Non-Af Amer) (> 60) BUN/Creatinine Ratio (6-26) Glucose (70-105) mg/dL Calculated Osmolality (280-300) Lactic Acid (0.5-2.2) mmol/L Calcium (8.6-10.3) mg/dL Troponin I (< 0.04) ng/mL B-Natriuretic Peptide 12 (Less than 100) pg/mL - Radiology Data Radiology results reviewed: Yes I reviewed the patient's radiology results. Chest X-Ray 02/14/18 12:52 IMPRESSION: No evidence of acute cardiopulmonary disease. D/ / Oliver Cook MD / Oliver Cook MD Interpreting Provider: Oliver Cook MD - EKG Data EKG #1 EKG attestation: Yes I reviewed and interpreted this EKG. EKG results narrative: 02/14/2018 at 12:55. No sinus rhythm. Rate 73. W[place] 153. QRS 101. QTC 389. Left axis deviation. No acute ST elevation or depression. There is a T-wave inversion in lead 3 that is unchanged from previous EKG. S.B.Danielle.Prasanth - Renee Situation: Demographics, MOA Background: Presenting Complaint, Relevant PMH, Meds, & Allergies Assessment: Vital Signs, Course and respsone to treatment, Exam Concerns, Patient/Family Expectation, Pertinant Lab Results, Outstanding Labs Recommendation: Barrier(s) to disposition, Recommendation based on pending studies, treatments, or consults Renee Report Given to: Dr. Yandel Duran Repor Time: 15:53
[2018-02-14 14:26] LABS: Basophils % 0.3 %; Eosinophils # 0.2 K/mcL (0.0-0.6); Eosinophils % 2.9 %; Hematocrit 44.9 % (37.5-50.1); Hemoglobin 14.5 g/dL (12.9-16.9); Immature Granulocytes % 0.6 % (0-4); Lymphocytes # 0.8 K/mcL (0.6-4.6); Lymphocytes % 13.2 %; Mean Corpuscular HGB Conc 32.3 g/dL (31.6-35.5); Mean Corpuscular Hemoglobin 29.5 pg (28.0-33.3); Mean Corpuscular Volume 91.4 fL (83.0-100.0); Mean Platelet Volume 9.6 fL (9.4-12.4); Monocytes # 0.6 K/mcL (0.0-1.3); Monocytes % 9.3 %; Neutrophils # 4.6 K/mcL (1.6-8.9); Platelet Count 224 K/mcL (140-400); Red Blood Count 4.91 M/mcL (4.19-5.50); Red Cell Distribution Width 14.6 % (11.5-14.5); Segmented Neutrophils % 73.7 %
[2018-02-14] MEDS ORDERED: Aspirin 325 MG TABLET PO ONE (14:28)
[2018-02-14 14:44] LABS: Troponin I < 0.03 ng/mL (< 0.04)
[2018-02-14 14:45] LABS: BUN/Creatinine Ratio 15 (6-26); Blood Urea Nitrogen 21 mg/dL (8-23); Calcium 9.1 mg/dL (8.6-10.3); Carbon Dioxide 25 mEq/L (23-29); Chloride 106 mEq/L (98-107); Glucose 90 mg/dL (70-105); Osmolality,Calculated 287 (280-300); Potassium 4.7 mEq/L (3.5-5.1); Sodium 137 mEq/L (136-145); eGFR For African Americans > 60 (> 60); eGFR For Non-African Americans 52 (> 60)
--- NOTE | 2018-02-14 15:34 | Emergency Department Note ---
START Narrative - START START: I examined this patient and my medical decision-making was reviewed with the Resident Physician. I agree with the documented findings, disposition and treatment plan as described except to the extent set forth below. 72 yo M here for CP; recent stent placement in Dec. Having unstable angina. Dr Estrella with Cards wanted heparin gtt started. ekg ok. trop neg; vss admit no critical care time
[2018-02-14] MEDS ORDERED: *HR* Heparin 5,000 UNIT/ML VIAL IVP ONE (15:39)
[2018-02-14] MEDS ORDERED: *HR* Heparin 5,000 UNIT/ML VIAL IVP PRN ×2 (15:39)
[2018-02-14 16:03] LABS: Activated Partial Thrombo Time 26.7 Seconds (26.0-36.0); INR 1.2; Prothrombin Time 12.7 Seconds (9.4-12.1)
[2018-02-14] MEDS: Heparin 25,000 UNIT/500 ML D5W 25,000 UNIT/500 ML BAG IVC SCH (16:13)
[2018-02-14] MEDS ORDERED: Acetaminophen 325 MG TABLET PO PRN (16:25)
[2018-02-14] MEDS ORDERED: Naloxone 0.4 MG/ML INJ IVP PRN (16:25)
[2018-02-14] MEDS ORDERED: Nitroglycerin 0.4 MG TAB.SUBL SL PRN (16:27)
--- NOTE | 2018-02-14 16:33 | Internal Med History&Physical ---
Date of Encounter: 02/14/18 Time of Encounter: 16:30 Internal Medicine - H&P: HPI Chief complaint: Shortness of breath Admitted From: Emergency Dept Plans for Post Hospital Care: Home History of present illness: Mr. Sebastian is a 72 year old male with h/o- CAD and recent stent placement, who presents with c/o- shortness of breath. PAtient reports worsening dyspnea and chest tightness for the last 3-4 days. His dyspnea is worse with exertion, not associated with fever, chills, cough. He had significant chest pain during his previous admission for NSTEMI, but now his main complaint is shortness of breath. No leg swelling, palpitations or syncope, but he does report some dizziness. No nausea, vomiting, headache or blurred vision. Past Med Surg Social Fam HX - Past Medical History Medical history: coronary artery disease, GERD, hyperlipidemia, hypertension, myocardial infarction, renal disease Psychiatric history: no psych history - Past Surgical History Surgical History: coronary bypass (CABG), other (spinal fusion surgeries) - Social History Smoking Status: Never smoker Smokeless Tobacco Status: No Alcohol use: none Drug use: none Occupational status: employed Current living situation: Home, With Family Activity Level: Independent ambulation Recent Out of Country Travel Within the Last 8 Weeks: No Exposure or Possible Exposure to Illness During Travel: No - Family History Brother Adopted: No Family Member Ethnicity: Non- Living Status: Still Living Hx Family Cardiac Disorders: Yes Hx Family Respiratory Disorders: No Hx Family Cancer: No Hx Family GI Disorders: No Hx Family Endocrine Disorder: Yes Hx Family Neuromuscular Disorders: No Hx Family Neurologic Disorders: No Hx Family HEENT Disorders: No Hx Family Autoimmune Disorders: No Sister Hx Family Cancer: Yes (breast cancer) Internal Medicine - H&P: Meds Aspirin [Lo-Dose Aspirin EC] 81 mg PO QAM 12/22/17 [History] Losartan Potassium [Cozaar] 50 mg PO QAM 12/22/17 [History] Metoprolol [Lopressor] 25 mg PO BID 12/22/17 [History] Omeprazole [PriLOSEC] 20 mg PO QAM 12/22/17 [History] Ticagrelor [Brilinta] 90 mg PO BID 30 Days #30 tablet 12/23/17 [Rx] Atorvastatin Calcium [Lipitor] 80 mg PO HS 02/14/18 [History] Nitroglycerin [Nitrostat] 0.4 mg SL Q5M PRN 02/14/18 [History] 3 Allergy/AdvReac Type Severity Reaction Status Date / Time No Known Allergies Allergy Verified 12/22/17 09:31 All Systems PM: A 10-system review of systems was performed and is negative for pertinent findings except as documented above in the HPI. - Constitutional Constitutional: no chills, no fever(s), no night sweats - EENT Eyes: no change in vision, no discharge, no pain, no photophobia Ears: no ear discharge, no ear pain, no tinnitus Nose, mouth and throat: no dysphagia, no nasal discharge, no neck pain, no sore throat - Cardiovascular Cardiovascular ROS IM: chest pain, dyspnea, dyspnea on exertion, lightheadedness - Respiratory Respiratory: dyspnea on exertion, no cough, no dyspnea, no wheezing, no excessive phlegm production - Gastrointestinal Gastrointestinal: no abdominal pain, no diarrhea, no hematemesis, no hematochezia, no melena, no nausea, no vomiting - Musculoskeletal Musculoskeletal ROS IM: no numbness, no tingling - Integumentary Integumentary IM: no rash, no unusual bruising - Neurological Neurological ROS: no confusion, no convulsions, no focal weakness, no numbness, no tingling, no tremor(s) - Hematologic/Lymphatic Hematologic/Lymphatic: no easy bruising - Constitutional Vitals: Temp Pulse Resp BP Pulse Ox 98.3 F 96 18 154/81 100 02/14/18 12:50 02/14/18 12:50 02/14/18 12:50 02/14/18 12:50 02/14/18 12:50 General appearance: Present: A&O X 3, answers questions appropriately - Respiratory Respiratory exam: Present: CTAB. Absent: accessory muscle use, rales, rhonchi, wheezes - Cardiovascular Cardiovascular exam: Present: RRR, +S1, +S2. Absent: diastolic murmur, gallop, rubs, systolic murmur - GI/Abdominal GI/Abdominal exam: Present: normal bowel sounds, soft, no peritoneal signs. Absent: distended, tenderness - Extremities Exam Extremities exam: Present: full ROM, warm, radial pulses palpable and symmetrical. Absent: calf tenderness, cyanotic, pedal edema - Neurological Exam Neurological exam: Present: CN II-XII intact, oriented X3, no focal deficits. Absent: pronater drift, facial droop, speech deficit - Skin Skin exam: Present: dry, intact Internal Med - H&P Results - Labs CBC & Chem 7: 02/14/18 14:09 02/14/18 14:09 - Assessment and plan (1) Dyspnea Current Visit: Yes Status: Acute Assessment and plan: to consider anginal equivalent, in light of recent stent placement. EKG reviewed independently- shows NSR with Q waves in inferior and anterior leads, the latter is a new change. Chest XRay shows no acute infiltrates/effusions. Cardiac catheterization in Dec 2017 showed severe 3V disease, received MALCOM to 1st OM. Echocardiogram showed preserved EF, mild LV diastolic dysfunction. Case d/w Cardiology by ER physician- recommend anticoagulation with IV Heparin drip; continue ASA, Brilinta, beta nadya, ARB and statin. Telemetry monitoring and serial Troponins- first set negative. continue supplemental O2 and supportive care; Qualifiers: Dyspnea type: dyspnea on exertion Qualified Code(s): R06.09 - Other forms of dyspnea (2) CAD (coronary artery disease) Current Visit: Yes Status: Chronic Assessment and plan: plan as above. Qualifiers: Coronary Disease-Associated Artery/Lesion type: bypass graft [place] vs. transplanted heart: [place] heart Associated angina: with unstable angina Qualified Code(s): I25.700 - Atherosclerosis of coronary artery bypass graft(s) , unspecified, with unstable angina pectoris (3) CKD (chronic kidney disease), stage III Current Visit: Yes Status: Chronic Assessment and plan: GFR and serum creatinine stable, at baseline; monitor closely, avoid new nephrotoxic agents; (4) HTN (hypertension) Current Visit: Yes Status: Chronic Assessment and plan: BP well-controlled; resume beta nadya and ARB; Qualifiers: Hypertension type: essential hypertension Qualified Code(s): I10 - Essential (primary) hypertension (5) Hyperlipidemia Current Visit: Yes Status: Chronic Qualifiers: Hyperlipidemia type: unspecified Qualified Code(s): E78.5 - Hyperlipidemia , unspecified - Time Spent With Patient Total time spent is greater than 50% in coordination of care (as documented) at patient's floor/unit and/or counseling patient:
[2018-02-14] MEDS: *HR* Ticagrelor 90 MG TABLET PO SCH (19:51)
[2018-02-15 07:17] LABS: BUN/Creatinine Ratio 17 (6-26); Blood Urea Nitrogen 19 mg/dL (8-23); Calcium 8.5 mg/dL (8.6-10.3); Carbon Dioxide 24 mEq/L (23-29); Chloride 104 mEq/L (98-107); Glucose 102 mg/dL (70-105); Osmolality,Calculated 292 (280-300); Potassium 4.1 mEq/L (3.5-5.1); Sodium 140 mEq/L (136-145); eGFR For African Americans > 60 (> 60); eGFR For Non-African Americans > 60 (> 60)
[2018-02-15 07:28] LABS: Basophils % 0.4 %; Eosinophils # 0.3 K/mcL (0.0-0.6); Eosinophils % 6.1 %; Hematocrit 42.5 % (37.5-50.1); Hemoglobin 13.6 g/dL (12.9-16.9); Immature Granulocytes % 0.6 % (0-4); Lymphocytes % 19.9 %; Mean Corpuscular Volume 90.6 fL (83.0-100.0); Mean Platelet Volume 9.9 fL (9.4-12.4); Monocytes # 0.7 K/mcL (0.0-1.3); Monocytes % 14.1 %; Neutrophils # 2.9 K/mcL (1.6-8.9); Platelet Count 203 K/mcL (140-400); Red Blood Count 4.69 M/mcL (4.19-5.50); Red Cell Distribution Width 14.7 % (11.5-14.5); Segmented Neutrophils % 58.9 %
[2018-02-15] MEDS: *HR* Ticagrelor 90 MG TABLET PO SCH ×2 (09:21→21:43)
[2018-02-15] MEDS: Aspirin Enteric Coated 81 MG Tablet PO SCH (09:22)
--- NOTE | 2018-02-15 13:43 | Cardiology Consult Note ---
<Diamond Gerber - Last Filed: 02/15/18 15:05> Date of Encounter: 02/15/18 Time of Encounter: 13:41 Assessment and Plan (1) Chest pain Current Visit: Yes Status: Acute Atypical chest pain. s/p C 12/22/2017: severe 3 vessel disease, MALCOM in 1st OM. S /P CABG 1 or 2 patent bypass grafts troponin negative x5 BNP 12 EKG: sinus rhythm, evidence if prior [place] -stress test ordered for tomorrow -NPO midnight -hold nitro Qualifiers: Chest pain type: unspecified Qualified Code(s): R07.9 - Chest pain, unspecified (2) CAD (coronary artery disease) Current Visit: Yes Status: Chronic Hx CABG. 12/22/2017 [facility]: severe 3 vessel disease, MALCOM in 1st OM. S/P CABG 1 or 2 patent bypass grafts 12/22/2017 [facility]: EF 50-55%, no segmental or valvular dysfunction -continue asa, lipitor, brilinta, losartan, metoprolol Qualifiers: Coronary Disease-Associated Artery/Lesion type: bypass graft [place] vs. transplanted heart: [place] heart Associated angina: with unstable angina Qualified Code(s): I25.700 - Atherosclerosis of coronary artery bypass graft(s) , unspecified, with unstable angina pectoris (3) HTN (hypertension) Current Visit: Yes Status: Chronic HTN. BP controlled. -continue losartan, metoprolol Qualifiers: Hypertension type: essential hypertension Qualified Code(s): I10 - Essential (primary) hypertension (4) CKD (chronic kidney disease), stage III Current Visit: Yes Status: Chronic CKD. creatinine 1.14 (at baseline) -avoid nephrotoxic agents Discussion w patient/family: The assessment and plan as outlined above was discussed with the patient and/or family members who expressed understanding and agreement. All questions were answered. Thank you for involving us in the care of your patient. Please call with any questions. History of Present Illness Consult date: 02/15/18 Requesting physician: Wilman Tadeo Consult reason: chest tightness hx stents 12/18/2017 Chief complaint: chest tightness History of present illness: Mr. Sebastian is a 72 year old male PMH CABG, HTN, HLD, CKD who presented to [facility] complaining of chest tightness that is not radiating. He usually gets it while sitting at his desk. He then becomes short of breath and dizzy. It lasted 10min and did not take nitro. He has been getting this since his last heart cath. On [facility] severe 3 vessel disease, MALCOM in 1st OM. S/P CABG 1 or 2 patent bypass grafts. Denies current chest pain, palpitations, shortness of breath, dizziness, nausea, syncope. Former smoker quit 50yr ago. He has no family history of cardiac disease. Past Med Surg Social Fam HX - Past Medical History Medical history: coronary artery disease, GERD, hyperlipidemia, hypertension, myocardial infarction, renal disease Psychiatric history: no psych history - Past Surgical History Surgical History: coronary bypass (CABG), other - Social History Smoking Status: Never smoker Smokeless Tobacco Status: No Alcohol use: none Drug use: none - Family History Brother Adopted: No Family Member Ethnicity: Non- Living Status: Still Living Hx Family Cardiac Disorders: Yes Hx Family Respiratory Disorders: No Hx Family Cancer: No Hx Family GI Disorders: No Hx Family Endocrine Disorder: Yes Hx Family Neuromuscular Disorders: No Hx Family Neurologic Disorders: No Hx Family HEENT Disorders: No Hx Family Autoimmune Disorders: No Sister Hx Family Cancer: Yes (breast cancer) Medications and Allergies Aspirin [Lo-Dose Aspirin EC] 81 mg PO QAM 12/22/17 [History] Losartan Potassium [Cozaar] 50 mg PO QAM 12/22/17 [History] Metoprolol [Lopressor] 25 mg PO BID 12/22/17 [History] Omeprazole [PriLOSEC] 20 mg PO QAM 12/22/17 [History] Ticagrelor [Brilinta] 90 mg PO BID 30 Days #30 tablet 12/23/17 [Rx] Atorvastatin Calcium [Lipitor] 80 mg PO HS 02/14/18 [History] Nitroglycerin [Nitrostat] 0.4 mg SL Q5M PRN 02/14/18 [History] 3 Allergy/AdvReac Type Severity Reaction Status Date / Time No Known Allergies Allergy Verified 12/22/17 09:31 All Systems Review: The remainder of the systems were reviewed and are negative - Constitutional Constitutional: no chills, no fever(s), no frequent falls, no weakness - EENT Eyes: no loss of vision - Cardiovascular Cardiovascular: chest pain at rest, no diaphoresis, no lightheadedness, no palpitations, no syncope - Respiratory Respiratory: dyspnea, no cough - Gastrointestinal Gastrointestinal: no abdominal pain, no nausea - Musculoskeletal Musculoskeletal: no abnormal gait - Integumentary Integumentary: no erythema - Neurological Neurological: dizziness, no abnormal speech Physical Examination Vital Signs, Last 4 Hours Temp Pulse Resp BP Pulse Ox 02/15/18 11:17 98.1 F 64 16 101/66 95 General: Conversant, No Apparent Distress HEENT: Atraumatic, Mucus Membranes Moist Neck: No JVD Cardiac: Reg Rate and Rhythm, Normal S1 and S2 Lungs: Normal Breath Sounds, No Wheeze, Rales, Rhonchi Neuro: Alert and responsive Abdomen: Soft, Non-Tender Skin: No rashes noted on visualized skin Musculoskeletal: No Chest Wall Tenderness Extremities: No Edema Results 02/15/18 06:25 02/15/18 06:25 Lab Results 02/14/18 02/14/18 02/15/18 21:50 21:50 06:25 WBC 4.9 Hgb 13.6 Hct 42.5 Plt Count 203 APTT 65.5 H D Sodium Potassium Chloride Carbon Dioxide BUN Creatinine Glucose Calcium Magnesium Troponin I < 0.03 02/15/18 02/15/18 02/15/18 06:25 06:25 07:47 WBC Hgb Hct Plt Count APTT 61.2 H Sodium 140 Potassium 4.1 Chloride 104 Carbon Dioxide 24 BUN 19 Creatinine 1.14 Glucose 102 Calcium 8.5 L Magnesium 2.0 Troponin I < 0.03 02/15/18 09:17 WBC Hgb Hct Plt Count APTT Sodium Potassium Chloride Carbon Dioxide BUN Creatinine Glucose Calcium Magnesium Troponin I < 0.03 Consult Discharge Plan - Plan Referrals: Daniel Garcia [Partnered Physician] - 02/22/18 1:55 pm Nirav Solomon DO [Primary Care Provider] - 04/11/18 8:45 am <Elaina Estrella - Last Filed: 02/15/18 15:53> Date of Encounter: 02/15/18 - Attending Attestation I examined this patient and my medical decision-making was reviewed with the Resident Physician. I agree with the documented findings, disposition and treatment plan as described except to the extent set forth below. 72-year-old male status post-PCI to his obtuse marginal complains of recurrent episodes of chest pain over the last 4-5 days. Negative cardiac markers with non-significant EKG changes. Chemical stress test to rule out ischemia in OM1 territory Assessment and Plan Discussion w patient/family: The assessment and plan as outlined above was discussed with the patient and/or family members who expressed understanding and agreement. All questions were answered. Thank you for involving us in the care of your patient. Please call with any questions. History of Present Illness History of present illness: Mr. Sebastian is a 72 year old male All Systems Review: The remainder of the systems were reviewed and are negative Physical Examination Vital Signs, Last 4 Hours Temp Pulse Resp BP Pulse Ox 02/15/18 15:50 98.5 F 62 14 138/83 94 Results 02/15/18 06:25 02/15/18 06:25 Lab Results 02/14/18 02/14/18 02/15/18 21:50 21:50 06:25 WBC 4.9 Hgb 13.6 Hct 42.5 Plt Count 203 APTT 65.5 H D Sodium Potassium Chloride Carbon Dioxide BUN Creatinine Glucose Calcium Magnesium Troponin I < 0.03 02/15/18 02/15/18 02/15/18 06:25 06:25 07:47 WBC Hgb Hct Plt Count APTT 61.2 H Sodium 140 Potassium 4.1 Chloride 104 Carbon Dioxide 24 BUN 19 Creatinine 1.14 Glucose 102 Calcium 8.5 L Magnesium 2.0 Troponin I < 0.03 02/15/18 09:17 WBC Hgb Hct Plt Count APTT Sodium Potassium Chloride Carbon Dioxide BUN Creatinine Glucose Calcium Magnesium Troponin I < 0.03
--- NOTE | 2018-02-15 15:16 | Internal Med Progress Note ---
Date of Encounter: 02/15/18 Time of Encounter: 15:14 - Assessment and plan (1) Dyspnea Current Visit: Yes Status: Acute Assessment and plan: concerned for anginal equivalent, in light of recent stent placement. EKG showed NSR with Q waves in inferior and anterior leads, the latter is a new change. CXR no acute infiltrates/effusions. [facility] 12/2017 showed severe 3V disease ; s/p successful PCI with MALCOM to 1st OM. Echocardiogram showed preserved EF, mild LV diastolic dysfunction. Heparin gtt started in ED. Continue ASA, Brilinta , beta nadya, ARB and statin. Monitor on telemetry. NPO at midnight for stress test in a.m. Cardiology following. Qualifiers: Dyspnea type: dyspnea on exertion Qualified Code(s): R06.09 - Other forms of dyspnea (2) CAD (coronary artery disease) Current Visit: Yes Status: Chronic Assessment and plan: plan as above. Qualifiers: Coronary Disease-Associated Artery/Lesion type: bypass graft [place] vs. transplanted heart: [place] heart Associated angina: with unstable angina Qualified Code(s): I25.700 - Atherosclerosis of coronary artery bypass graft(s) , unspecified, with unstable angina pectoris (3) Loose stools Current Visit: Yes Status: Acute Assessment and plan: Reports loose stool since starting brilinta. Denies recent ATB use. Stool studies pending (4) CKD (chronic kidney disease), stage III Current Visit: Yes Status: Chronic Assessment and plan: GFR and serum creatinine stable, at baseline; monitor closely, avoid new nephrotoxic agents; (5) HTN (hypertension) Current Visit: Yes Status: Chronic Assessment and plan: BP well-controlled. Cont home BP medication. Monitor BP and titrate PRN Qualifiers: Hypertension type: essential hypertension Qualified Code(s): I10 - Essential (primary) hypertension (6) Hyperlipidemia Current Visit: Yes Status: Chronic Assessment and plan: per hx. Cont statin Qualifiers: Hyperlipidemia type: unspecified Qualified Code(s): E78.5 - Hyperlipidemia , unspecified (7) DVT prophylaxis Current Visit: Yes Status: Acute Assessment and plan: heparin gtt - Time Spent With Patient Total time spent is greater than 50% in coordination of care (as documented) at patient's floor/unit and/or counseling patient: - Subjective Interval history: Seen and examined at bedside, patient is new to me. Information obtained from chart review and patient report. Still with complaint of shortness of breath. Has a nonproductive cough. No fevers or chills. No chest pain. Also reports loose stool since starting [place]. Denies abdominal pain. No recent ATB use. - Constitutional Vitals: Temp Pulse Resp BP Pulse Ox 98.1 F 64 16 101/66 95 02/15/18 11:17 02/15/18 11:17 02/15/18 11:17 02/15/18 11:17 02/15/18 11:17 General appearance: Present: A&O X 3, answers questions appropriately - Head Head exam: Present: atraumatic, normocephalic - Eye Eye exam: Present: PERRL, conjuntiva pink, sclera anicteric Pupils: Present: PERRL - Neck Neck exam general surgery: Present: supple, trachea midline. Absent: lymphadenopathy - Respiratory Respiratory exam: Present: CTAB. Absent: accessory muscle use, rales, rhonchi, wheezes - Cardiovascular Cardiovascular exam: Present: RRR, +S1, +S2. Absent: diastolic murmur, gallop, rubs, systolic murmur - GI/Abdominal GI/Abdominal exam: Present: normal bowel sounds, soft, no peritoneal signs. Absent: distended, tenderness - Extremities Exam Extremities exam: Present: warm, radial pulses palpable and symmetrical. Absent : calf tenderness, cyanotic, pedal edema - Neurological Exam Neurological exam: Present: CN II-XII intact, oriented X3, no focal deficits. Absent: pronater drift, facial droop, speech deficit - Skin Skin exam: Present: dry, intact Internal Medicine: Result - Labs CBC & Chem 7: 02/15/18 06:25 02/15/18 06:25 Labs: Short CBC 02/15/18 Range/Units 06:25 WBC 4.9 (4.3-11.1) K/mcL Hgb 13.6 (12.9-16.9) g/dL Hct 42.5 (37.5-50.1) % Plt Count 203 (140-400) K/mcL Neutrophils # 2.9 (1.6-8.9) K/mcL BMP 02/15/18 06:25 Sodium 140 Potassium 4.1 Chloride 104 Carbon Dioxide 24 BUN 19 Creatinine 1.14 Glucose 102 Calcium 8.5 L Cardiac Enzymes 02/14/18 02/15/18 02/15/18 Range/Units 21:50 06:25 09:17 Troponin I < 0.03 < 0.03 < 0.03 (< 0.04) ng/mL - ABG Interpretation ABG results: PT/INR, D-dimer PT 12.7 Seconds (9.4-12.1) H 02/14/18 15:39 Consult Discharge Plan - Plan Referrals: Daniel Garcia [Partnered Physician] - 02/22/18 1:55 pm Nirav Solomon DO [Primary Care Provider] - 04/11/18 8:45 am
[2018-02-15] MEDS: Heparin 25,000 UNIT/500 ML D5W 25,000 UNIT/500 ML BAG IVC SCH (17:57)
[2018-02-16 00:27] LABS: Adenovirus F 40/41 PCR Not detected (Not detect); Astrovirus PCR ***DETECTED*** (Not detect); C.difficile Toxin A/B by PCR Not detected (Not detect); Campylobacter by PCR Not detected (Not detect); Cryptosporidium by PCR Not detected (Not detect); Cyclospora cayetanensis PCR Not detected (Not detect); E. coli O157 by PCR Not detected (Not detect); Entamoeba histolytica PCR Not detected (Not detect); Enteroaggregative E.coli(EAEC) Not detected (Not detect); Enteropathogenic E.coli(EPEC) Not detected (Not detect); Enterotoxigenic E.coli (ETEC) Not detected (Not detect); Giardia lamblia PCR Not detected (Not detect); Norovirus GI/GII PCR Not detected (Not detect); Plesiomonas shigelloides PCR Not detected (Not detect); Rotavirus A PCR Not detected (Not detect); Salmonella PCR Not detected (Not detect); Sapovirus PCR Not detected (Not detect); Shig/EnteroinvasiveE coli EIEC Not detected (Not detect); Shigalike tox-prod E coli STEC Not detected (Not detect); Vibrio PCR Not detected (Not detect); Vibrio cholerae PCR Not detected (Not detect); Yersinia enterocolitica PCR Not detected (Not detect)
[2018-02-16] MEDS ORDERED: Regadenoson 0.4 MG/5 ML SYRINGE IVP ONE (06:09)
--- NOTE | 2018-02-16 10:41 | Cardiology Progress Note ---
<Diamond Gerber - Last Filed: 02/16/18 10:39> Date of Encounter: 02/16/18 Time of Encounter: 09:15 Assessment and Plan (1) Chest pain Current Visit: Yes Status: Acute Atypical chest pain. s/p LHC 12/22/2017: severe 3 vessel disease, MALCOM to obtuse marginal. S/P CABG 1 or 2 patent bypass grafts troponin negative x5 EKG: sinus rhythm, evidence if prior [place] He reports faithfully taking DAPT. stress test 02/16/2018: per cardiology: - Qualifiers: Chest pain type: unspecified Qualified Code(s): R07.9 - Chest pain, unspecified (2) CAD (coronary artery disease) Current Visit: Yes Status: Chronic Hx CABG. 12/22/2017 [facility]: severe 3 vessel disease, MALCOM to obtuse marginal. S/P CABG 1 or 2 patent bypass grafts 12/22/2017 TTE: EF 50-55%, no segmental or valvular dysfunction -continue asa, lipitor, brilinta, losartan, metoprolol Qualifiers: Coronary Disease-Associated Artery/Lesion type: bypass graft [place] vs. transplanted heart: [place] heart Associated angina: with unstable angina Qualified Code(s): I25.700 - Atherosclerosis of coronary artery bypass graft(s) , unspecified, with unstable angina pectoris (3) HTN (hypertension) Current Visit: Yes Status: Chronic HTN. BP controlled. -continue losartan, metoprolol Qualifiers: Hypertension type: essential hypertension Qualified Code(s): I10 - Essential (primary) hypertension (4) CKD (chronic kidney disease), stage III Current Visit: Yes Status: Chronic CKD. creatinine 1.14 (at baseline) -avoid nephrotoxic agents Discussion w patient/family: The assessment and plan as outlined above was discussed with the patient and/or family members who expressed understanding and agreement. All questions were answered. Thank you for involving us in the care of your patient. Please call with any questions. Subjective Principal diagnosis: chest pain Interval history: Patient denies chest pain, palpitations, shortness of breath. He stated stress test went well and is looking forward to being discharged. Objective General: Conversant, No Apparent Distress HEENT: Atraumatic, Mucus Membranes Moist Neck: No JVD, Normal carotid pulses Cardiac: Reg Rate and Rhythm, Normal S1 and S2 Lungs: Normal Breath Sounds, No Wheeze, Rales, Rhonchi Neuro: Alert and responsive, No focal deficits noted Abdomen: Soft, Non-Tender Skin: No rashes noted on visualized skin Musculoskeletal: No Chest Wall Tenderness Extremities: No Edema Results 02/15/18 06:25 02/15/18 06:25 Lab Results 02/16/18 10:05 APTT 54.1 H Consult Discharge Plan - Plan Referrals: Daniel Garcia [Partnered Physician] - 02/22/18 1:55 pm Nirav Solomon DO [Primary Care Provider] - 04/11/18 8:45 am <Elaina Estrella - Last Filed: 02/16/18 11:37> Date of Encounter: 02/16/18 Assessment and Plan Discussion w patient/family: The assessment and plan as outlined above was discussed with the patient and/or family members who expressed understanding and agreement. All questions were answered. Thank you for involving us in the care of your patient. Please call with any questions. I examined this patient and my medical decision-making was reviewed with the Resident Physician. I agree with the documented findings, disposition and treatment plan as described except to the extent set forth below. Multiple days of chest pain with negative troponins and recent PCI to his obtuse marginal status post CABG prior awaiting results of stress test Results 02/15/18 06:25 02/15/18 06:25 Lab Results 02/16/18 10:05 APTT 54.1 H
[2018-02-16] MEDS: Aspirin Enteric Coated 81 MG Tablet PO SCH (11:09)
[2018-02-16] MEDS: *HR* Ticagrelor 90 MG TABLET PO SCH (11:09)
--- NOTE | 2018-02-16 11:57 | Event Note ---
<Diamond Gerber - Last Filed: 02/16/18 11:55> Date of Encounter: 02/16/18 Time of Encounter: 11:55 Stress test today was negative for ischemia and infarct. -continue asa, lipitor, brilinta, losartan, metoprolol -Cardiology will sign off at this time. follow up outpatient with cardiology <Elaina Estrella - Last Filed: 02/16/18 16:09> Date of Encounter: 02/16/18 I examined this patient and my medical decision-making was reviewed with the Resident Physician. I agree with the documented findings, disposition and treatment plan as described except to the extent set forth below. Unremarkable stress test with no ischemia or reversible defects. Preserved ejection fraction continue medical management follow-up with cardiology as an outpatient
[2018-02-16 12:03] VITALS: BP 131/84
--- NOTE | 2018-02-16 14:19 | Discharge Summary ---
- NOTES TO OUTPATIENT PROVIDER Notes to Outpatient Provider: Follow-up in 1-2 weeks recommended Orders not resulted at time of discharge: Pending orders 02/15/18 13:42 NM mark perf SPECT multi [NM] Routine 02/16/18 17:15 PTT [Activated Partial Thrombo Time] [COAG] Timed Date of Encounter: 02/16/18 Time of Encounter: 14:15 - Discharge Diagnosis (1) Dyspnea Priority: Primary Status: Acute Comments: concerned for anginal equivalent, in light of recent stent placement. EKG showed NSR with Q waves in inferior and anterior leads. Heparin gtt started in ED. CXR with no acute infiltrates/effusions. [facility] 12/2017 showed severe 3V disease ; s/p successful PCI with MALCOM to 1st OM. 12/2017 TTE with preserved EF, mild LV diastolic dysfunction. 02/16/2018 stress test perfusion imaging negative for ischemia or infarct. Pharmacologic stress ECG negative for ischemia. Differentials include pulmonary embolism, aortic dissection low probability low ; patient declined CTA of the chest. Denied dyspnea/shortness of breath at time of discharge. Evaluated by cardiology who recommended continuing medical management. Continue ASA, Brilinta, beta nadya, ARB and statin. Follow-up with cardiology outpatient. Qualifiers: Dyspnea type: dyspnea on exertion Qualified Code(s): R06.09 - Other forms of dyspnea (2) CAD (coronary artery disease) Priority: Primary Status: Chronic Comments: plan as noted above. Continue ASA, Brilinta, beta nadya, ARB and statin Qualifiers: Coronary Disease-Associated Artery/Lesion type: bypass graft [place] vs. transplanted heart: [place] heart Associated angina: with unstable angina Qualified Code(s): I25.700 - Atherosclerosis of coronary artery bypass graft(s) , unspecified, with unstable angina pectoris (3) CKD (chronic kidney disease), stage III Priority: Secondary Status: Chronic Comments: GFR and serum creatinine stable, at baseline (4) HTN (hypertension) Priority: Secondary Status: Chronic Comments: per hx. BP controlled. Cont home BP medication Qualifiers: Hypertension type: essential hypertension Qualified Code(s): I10 - Essential (primary) hypertension (5) Hyperlipidemia Priority: Secondary Status: Chronic Comments: per hx. Cont home statin Qualifiers: Hyperlipidemia type: unspecified Qualified Code(s): E78.5 - Hyperlipidemia , unspecified (6) Astrovirus gastroenteritis Priority: Primary Status: Acute Comments: Symptomatic with loose stool for 3-4 days prior to arrival. No abdominal pain. No nausea or vomiting. Tolerating regular diet. Stool studies positive for astrovirus. No indication for ATB. Encouraged to stay adequately hydrated. Can use PRN Imodium if needed. Patient reported decreased in frequency of stools and stools becoming more formed at time of discharge. Advised to follow- up with PCP if not resolved within one week. Hospital course: See assessment and plan for hospital course. Discharge discussed with: patient (Seen and examined at bedside. Says he feels better and would like to go home today. Reviewed stress test with him and negative findings. No further dyspnea while inpatient. Last bowel movement yesterday. Patient says frequency of stools decreasing and becoming more formed. Advised to return to the ER if chest pain/SOB recurs. Also advised to follow-up with PCP within 1-2 weeks.) - Time Spent with Patient Total time spent providing and/or coordinating discharge services: Less than 30 minutes - Discharge Medications Home Medications: Aspirin [Lo-Dose Aspirin EC] 81 mg PO QAM 12/22/17 [History] Losartan Potassium [Cozaar] 50 mg PO QAM 12/22/17 [History] Metoprolol [Lopressor] 25 mg PO BID 12/22/17 [History] Omeprazole [PriLOSEC] 20 mg PO QAM 12/22/17 [History] Ticagrelor [Brilinta] 90 mg PO BID 30 Days #30 tablet 12/23/17 [Rx] Atorvastatin Calcium [Lipitor] 80 mg PO HS 02/14/18 [History] Nitroglycerin [Nitrostat] 0.4 mg SL Q5M PRN 02/14/18 [History] Allergies/Adverse Reactions: 3 Allergy/AdvReac Type Severity Reaction Status Date / Time No Known Allergies Allergy Verified 12/22/17 09:31 Date of admission: 02/14/18 16:11 Primary care physician: Nirav Solomon Discharging clinician: Emerald Biggs Anticipated date of discharge: 02/16/18 - Constitutional Vitals: Temp Pulse Resp BP Pulse Ox 97.7 F 65 14 131/84 95 02/16/18 12:03 02/16/18 12:03 02/16/18 12:03 02/16/18 12:03 02/16/18 12:03 General appearance: Present: A&O X 3, answers questions appropriately - Patient Status Disposition: Home, Self-Care Condition: Good Functional capacity at discharge: independent ambulation Overall status at discharge: patient is back to baseline - Discharge Instructions Instructions: Gastroenteritis, Orientation And Mobility Instructor (GEN) Follow Up With: Daniel Garcia [Partnered Physician] - 02/22/18 1:55 pm Nirav Solomon DO [Primary Care Provider] - 04/11/18 8:45 am - Diet and Activity Activity: increase activity as tolerated Diet: low fat, low cholesterol, low salt diet
--- NOTE | 2018-02-17 13:42 | Electrocardiograph Report ---
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
== END 2018-02-16 15:20 | disposition home or self-care (01) ==
LOC: 3BNU 12:43 → EMEROO 12:43 → 3BNU 16:46
PROVIDERS: ADMIT Internal Medicine; ATTEND Registered Nurse